=== PATIENT | male | born 1935 | race Caucasian/White ===

== ENCOUNTER → 2017-04-08 06:00 | Outpatient (REF) | payer MEDICARE, SELFPAY ==
[2017-04-08 08:06] LABS: Anion Gap 7 (5-15); BUN 25 mg/dL (7-18); BUN/Creat Ratio 25.4 RATIO (10-20); Chloride 112 mmol/L (98-107); Cholesterol 143 mg/dL (200); Creatinine, Serum 0.98 mg/dL (0.70-1.30); EST Glomerular Filtration Rate 78 mL/min (>60); Est Glom Filt Rate - Afr Amer 95 mL/min (>60); Glucose 80 mg/dL (70-110); High Density Lipoprotein 43 mg/dL; Potassium 4.3 mmol/L (3.5-5.1); Sodium Level 145 mmol/L (136-145); Triglycerides 75 mg/dL; Very Low Density Lipoprotein 15 mg/dL (5-40)
== END ==
LOC: OLS.WCC 06:00
PROVIDERS: Visit Provider Family Medicine
DX: I10 Essential (primary) hypertension (principal)
CPT/HCPCS: 36415; 80048; 80061

== ENCOUNTER 2017-07-16 23:27 | Inpatient (IN) | payer MEDICARE, MEDICAID, SELFPAY ==
[2017-07-16 23:28] VITALS: BP 111/73; PULSE 122; RESP 18; TEMP 36.6; O2SAT 98; BMI 25.3
--- NOTE | 2017-07-16 23:56 | ED.VISSUMM ---
- ER Visit Summary Date of Service: 07/16/17 Chief Complaint: Abdominal pain History of Present Illness: The patient is a [address] Jan Almanza. Brought in from a long-term with complaint of abdominal pain. 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 This greatly limits my ability to obtain a history. Brother reports that he has not had vomiting or diarrhea that he knows of. He does have a history of a cholecystectomy. Brother is unsure whether he has had an appendectomy. Physical Examination: Vitals: Stable. Afebrile. General: Well-nourished and well-developed. Head: Normocephalic atraumatic. Neck: Supple, no lymphadenopathy. No JVD. Nontender. Cardiovascular: Tachycardic regular rhythm. No murmurs. Respiratory: No respiratory distress. Clear to auscultation bilaterally. Abdominal: Soft, distended with mild diffuse tenderness palpation and hypoactive bowel sounds. No guarding, rebound, or peritoneal signs. Back: Nontender. Extremities: Nontender, no edema. Skin: Normal color, no rash. Psych: Normal affect. Test Results: EKG is A. fib with RVR at [address] changes. Troponin is negative. UA is remarkable for leukocytes, 5-10 white blood cells, 3+ bacteria and this is a cath specimen. LFTs marked for direct bili of 0.55, alk phos 155, ALT of 79, AST of 52, albumin 3.0, globulin of 4.5. Lipase is 42. CBC is more for a white count of 4.0 with 16 bands and 2 metamyelocytes. H&H is 10.7 and 32.9. Chem-7 is more for chloride 110, glucose 120, BUN is 64, creatinine 2.06. His creatinine was 1.[address] the abdomen pelvis with p.o. contrast only shows significant distention of the sigmoid and rectum with distal sigmoid and rectal wall thickening. I spoke with radiologist and she reports this is similar to his prior CT. Lactic acid is 1.2. Emergency Department Course and Treatment: Patient had an IV placed. He was given 2 L of normal saline. He was given morphine and Zofran IV. He is resting comfortably. He was given Rocephin IV and amiodarone IV as he is hypotensive. He had a Loo catheter placed and immediately returned 800 cc of urine. Treatment Plan: I had a prolonged discussion with his brother at the bedside who reports that he is not the power of online producer. He states that they allow the patient to make his own decisions regarding his healthcare. I discussed in the fact that he is MRDD and nonverbal and that this may not be the best plan. I did discuss and the fact that there is a DNR Comfort Care only order on his chart. The brother reports that his mother actually signed this. She has . He would like to honor her wishes and keep him DNR Comfort Care only. The patient was discussed with Dr. Shayy colindres. He will be admitted to the hospital for further evaluation and treatment. Disposition: Admitted in critical condition. Impression: 1. Urinary retention. 2. Acute kidney injury. 3. UTI. 4. Atrial fibrillation with RVR. 5. DNR Comfort Care only. 6. Critical care time 30 minutes. This note was generated with [employer] dictation software. It may contain incorrect words, spelling, and punctuation that were not noted in review of the chart prior to signing ED Disposition - Plan for ED Patient: Chief Complaint: Abd Pain Referrals: Jan Almanza MD [Primary Care Provider] -
[2017-07-17] VITALS (25 sets, daily range): BP systolic 89–135; BP diastolic 56–80; PULSE 78–150; RESP 16–25; TEMP 36.3–36.9; O2SAT 94–98; BMI 24.2
[2017-07-17 00:29] LABS: Hematocrit 32.9 % (40-54); Hemoglobin 10.7 g/dl (13.0-16.5); Mean Corp Hgb Conc 32.5 g/gl (32-36); Mean Corpuscular Hgb 31.6 pg (27.0-32.0); Mean Corpuscular Volume 97.1 fL (80-94); Mean Platelet Vol. 9.9 fl (6.2-12.0); Platelet Count 156 K/mm3 (150-450); RBC Distribution Width CV 16.2 % (11.6-14.6); RBC Distribution Width SD 54.7 fl (35.1-43.9); Red Blood Count 3.39 M/mm3 (4.6-6.2)
[2017-07-17 00:30] LABS: Differential Indicated MANUAL DIFF; POSITIVE COUNT YES; POSITIVE DIFFERENTIAL YES; POSITIVE MORPHOLOGY YES
[2017-07-17] MEDS: 0.9% Normal Saline 1,000 ML 1000 ML IV (00:35)
[2017-07-17] MEDS: Ondansetron 4 MG/2 ML Vial IV (00:35)
[2017-07-17 00:49] LABS: Mucous, Urine 0 SEEN /hpf (<or=2+)
[2017-07-17 00:51] LABS: Color, Urine Amber (Yellow); Glucose, Dipstick Normal (Normal); Ketone-Dipstick Negative (Negative); Leukocyte Esterase-Dipstick 100 /ul (Negative); Nitrite-Dipstick Negative (Negative); Occult Blood-Urine 25 /ul (Negative); Protein-Dipstick 15 mg/dl (Negative); Urine Clarity Sl. Cloudy (Clear); Urine Urobilinogen 4 mg/dl (Normal)
[2017-07-17 00:55] LABS: Urine Bilirubin Dipstick 1 mg/dL (Negative)
[2017-07-17 00:56] LABS: Bacteria 3+ /hpf (None Seen); Squamous Epithelial Cells - UA 0-5 SEEN /hpf (0-5); White Blood Cells 5-10 SEEN /hpf (0-5)
[2017-07-17 00:57] LABS: Red Blood Cells-Urine 0-5 SEEN /hpf (0-5)
[2017-07-17 00:59] LABS: AST(SGOT) 52 U/L (15-37); Alanine Aminotransfer ALT/SGPT 79 U/L (16-61); Alkaline Phosphatase 155 U/L (45-117); Anion Gap 8 (5-15); BUN 64 mg/dL (7-18); BUN/Creat Ratio 31.1 RATIO (10-20); Bilirubin, Direct 0.55 mg/dL (0.00-0.30); Calcium,Total 9.4 mg/dL (8.5-10.1); Chloride 110 mmol/L (98-107); Creatinine, Serum 2.06 mg/dL (0.70-1.30); EST Glomerular Filtration Rate 33 mL/min (>60); Est Glom Filt Rate - Afr Amer 40 mL/min (>60); Estimated Creatinine Clearance 31.91 ml/min; Globulin 4.5 g/dL (2.2-4.2); Glucose 120 mg/dL (74-106); Lipase 42 U/L (73-393); Potassium 4.3 mmol/L (3.5-5.1); Protein, Total 7.5 g/dL (6.4-8.2); Sodium Level 142 mmol/L (136-145)
[2017-07-17 01:02] LABS: Lymphocyte 8 % (19-41); Metamyelocyte 2 % (0-1); Monocyte 11 % (0-10); Neutrophil-Band 16 % (0-5); Neutrophil-Segmented 63 % (47-70); Total Cells Counted 100 (MANUAL DIFF)
[2017-07-17 01:03] LABS: Absolute Neutrophil Count 3.2 X10^3/uL (2.0-7.7); Neutrophil # 3.16 X10^3/uL (2.7-7.7); Platelet Estimate ADEQUATE (ADEQ); Red Cell Morphology NORM C+C NORMAL (NORM C&C); Toxic Granulation 3+; Vacuolated Cells 2+
[2017-07-17 01:04] LABS: Absolute Lymphocyte Count 0.32 X10^3/ul (0.83-4.51); Lymphocyte # 0.32 X10^3/ul (4.0)
[2017-07-17] MEDS: Ceftriaxone 1 GM/50 ML BAG IV (02:41)
--- NOTE | 2017-07-17 02:50 | EKG12_ITS ---
Test Reason : TACHYCARDIA Blood Pressure : / mmHG Vent. Rate : 141 BPM Atrial Rate : 090 BPM P-R Int : 000 ms QRS Dur : 070 ms QT Int : 296 ms P-R-T Axes : 000 -04 051 degrees QTc Int : 453 ms Atrial fibrillation Low voltage QRS Abnormal ECG Confirmed by QUENTIN ANDREWS, ANNITA ([id number]), assignment editor BALJIT CROWLEY ([id number]) on 07/19/2017 3:03:14 PM Referred By: TRACIE Confirmed By:ANNITA SAAVEDRA MD
[2017-07-17] MEDS: 0.9% Normal Saline 1,000 ML 999 ML IV (02:54)
[2017-07-17 03:08] LABS: Lactic Acid 1.2 mmol/L (0.4-2.0)
--- NOTE | 2017-07-17 03:47 | RAD_ITS ---
STUDY: X-RAY CHEST REASON FOR EXAM: Male, 81 years old. Cough. TECHNIQUE: AP portable chest. COMPARISON: [facility] view CT chest October 30, 2012. FINDINGS: The lungs are clear and expanded. There is no demonstrated pleural abnormality. Moderate cardiomegaly slightly increased since the prior study. Normal mediastinum and laurie. Normal visualized pulmonary arteries. There is atherosclerotic calcification of the aortic arch. Normal visualized thoracic spine. Normal visualized ribs, clavicles, and shoulders. There is no demonstrated abnormality of the visualized soft tissue structures of the upper abdomen. RAD/Chest 1 View (Portable) IMPRESSION: Moderate cardiomegaly slightly increased since the prior exam. Electronically Signed: Tavon Flores MD at 4:53 EST , Service support ,
--- NOTE | 2017-07-17 04:11 | PCM.HP.STD ---
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 The patient is a 81 year old M with past medical history as mentioned above presented to the emergency room from [facility] because of abdominal pain. Reportedly, patient has been having abdominal pain. He is nonverbal because of history of MRDD. At this time, I was not able to get any useful information from the patient. There was no family member at the bedside. ER physician mentioned that patient's brother was present earlier. The brother was not also helpful in terms of providing useful history. I asked the patient if he has any chest pain he said no. I asked him if he has any abdominal pain and he said no as well. At this time, history is very limited. Patient had a history of chronic atrial fibrillation and he has been on Cardizem for rate control but not on anticoagulation. He had a history of mental retardation and he is a [facility] resident. He has history of benign prostatic hypertrophy as well as urinary retention and he has been on Flomax and Proscar. In the emergency room, patient was afebrile, was in A. fib with RVR, blood pressure and pulse ox were stable. Routine blood work was remarkable for chronic anemia, creatinine of 2.06. His lactic acid was normal. His LFT revealed slightly elevated liver transaminases and alkaline phosphatase. His lipase was normal. Urinalysis revealed cloudy urine, negative for nitrite, positive for leukocyte esterase, there was 5-10 WBCs and 3+ bacteria. Chest x-ray revealed cardiomegaly and elevated left hemidiaphragm. CT scan abdomen and pelvis with oral contrast revealed significant distention of the sigmoid colon with distal sigmoid and rectal wall thickening, no bowel obstruction or volvulus, significant amount of fecal retention. He is being admitted for acute cystitis with sepsis, acute kidney injury, chronic distention with significant fecal retention. 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) Allergies No Known Allergies Allergy (Verified 07/16/17 23:28) Home Medications: Ambulatory Orders Medication Instructions Recorded Acetaminophen [Tylenol Extra 1,000 mg PO BID 07/16/17 Strength] Acetaminophen [Tylenol Extra 1,000 mg PO Q4H PRN PRN 07/16/17 Strength] Diltiazem HCl [Diltiazem ER] 240 mg PO DAILY 07/16/17 Escitalopram Oxalate [Lexapro] 20 mg PO DAILY 07/16/17 Finasteride [Proscar] 5 mg PO DAILY 07/16/17 Furosemide [Lasix] 40 mg PO DAILY 07/16/17 Magnesium Hydroxide [Milk Of 30 ml PO DAILY PRN PRN 07/16/17 Magnesia] Meloxicam 15 mg PO DAILY 07/16/17 Omeprazole 20 mg PO DAILY 07/16/17 Polyethylene Glycol 3350 [Miralax] 17 gm PO QODAY 07/16/17 Tamsulosin HCl [Flomax] 0.4 mg PO DAILY 07/16/17 Surgical History: noncontributory Psychiatric History: No pertinent psych hx Lives: [facility] Smoking Status: Never smoker Alcohol: None Drugs: None - *Family History Maternal History Items: No pertinent history Paternal History Items: No pertinent history Review of Systems Constitutional: Reports: - - Unobtainable, patient is mentally retarded. Eyes: Reports: - - Unobtainable, patient is mentally retarded. HEENT: Reports: - - Unobtainable, patient is mentally retarded. Cardiovascular: Reports: - - Unobtainable, patient is mentally retarded. Respiratory: Reports: - - Unobtainable, patient is mentally retarded. Gastrointestinal: Reports: - - Unobtainable, patient is mentally retarded. Genitourinary: Reports: - - Unobtainable, patient is mentally retarded. Musculoskeletal: Reports: - - Unobtainable, patient is mentally retarded. Neurological: Reports: - - Unobtainable, patient is mentally retarded. VTE Information - Inpt Only VTE Present on Admission: No VTE Mechan Device Prophylaxis: None VTE Pharm Prophylaxis ordered?: Yes - Physical Exam General: Alert, Confused, - - Mental retarded, nonverbal. HEENT: Atraumatic, PERRLA, EOMI Oral: Moist Mucosa, No Gingival or Mucosal Lesions/ Ulcerations Neck: Supple, No JVD, Negative Carotid Bruits, Trachea Midline, Thyroid Normal Size and Texture Lungs: Clear to auscultation, No wheeze, No rales, Diminished, Rhonchi Cardiovascular: Normal S1, Normal S2, No murmurs, PMI Normal, Irregular Rate, Tachycardic Abdomen: Bowel Sounds Present, Non Tender, No Hepato-splenomegaly, Distended, - - Abdomen is distended, firm to palpation, nontender. Extremities: No clubbing, No cyanosis, No edema Skin: No rashes, No breakdown Lymphatic: No Cervical, Supraclavicular, or Inguinal Adenopathy Neurological: Cranial nerves II-XII grossly intact, - - Moving all limbs. Psych/Mental Status: Flat Affect Vital Signs Temp Pulse Resp BP Pulse Ox 98.3 F 122 H 20 H 97/65 96 07/17/17 03:00 07/17/17 03:39 07/17/17 03:39 07/17/17 03:39 07/17/17 03:39 Oxygen Delivery Method Room Air Weight: 187 lb Body Mass Index (BMI) 25.3 Laboratory Tests Past 24 Hrs 07/17/17 07/17/17 07/17/17 00:20 00:20 00:20 WBC 4.0 L RBC 3.39 L Hgb 10.7 L Hct 32.9 L MCV 97.1 H MCH 31.6 MCHC 32.5 RDW 16.2 H RDW Differential 54.7 H Plt Count 156 MPV 9.9 Neut % (Auto) Not Reportable Absolute Neuts (auto) 3.2 Absolute Lymphs (auto) 0.32 L Total Counted 100 Neutrophils % (Manual) 63 Band Neutrophils % 16 H Lymphocytes % (Manual) 8 L Monocytes % (Manual) 11 H Metamyelocytes % 2 H Differential Comment 2+ Diff Path Review May foll Toxic Granulation 3+ Platelet Estimate ADEQUATE RBC Morphology NORM C+C Sodium 142 Potassium 4.3 Chloride 110 H Carbon Dioxide 24.0 Anion Gap 8 BUN 64 H Creatinine 2.06 H Estim Creat Clear Calc 31.91 Est GFR (MDRD) Af Amer 40 L Est GFR (MDRD) Non-Af 33 L BUN/Creatinine Ratio 31.1 H Glucose 120 H Lactic Acid Calcium 9.4 Total Bilirubin 0.90 Direct Bilirubin 0.55 H AST 52 H ALT 79 H Alkaline Phosphatase 155 H Troponin I < 0.02 Total Protein 7.5 Albumin 3.0 L Globulin 4.5 H Lipase 42 L Urine Color Urine Clarity Urine pH Ur Specific Spruce Urine Protein Urine Glucose (UA) Urine Ketones Urine Occult Blood Urine Nitrite Urine Bilirubin Urine Urobilinogen Ur Leukocyte Esterase Urine RBC Urine WBC Ur Squamous Epith Cells Urine Bacteria Urine Mucus 07/17/17 07/17/17 00:39 02:30 WBC RBC Hgb Hct MCV MCH MCHC RDW RDW Differential Plt Count MPV Neut % (Auto) Absolute Neuts (auto) Absolute Lymphs (auto) Total Counted Neutrophils % (Manual) Band Neutrophils % Lymphocytes % (Manual) Monocytes % (Manual) Metamyelocytes % Differential Comment Diff Path Review Toxic Granulation Platelet Estimate RBC Morphology Sodium Potassium Chloride Carbon Dioxide Anion Gap BUN Creatinine Estim Creat Clear Calc Est GFR (MDRD) Af Amer Est GFR (MDRD) Non-Af BUN/Creatinine Ratio Glucose Lactic Acid 1.2 Calcium Total Bilirubin Direct Bilirubin AST ALT Alkaline Phosphatase Troponin I Total Protein Albumin Globulin Lipase Urine Color Alfreda Urine Clarity Sl. Cloudy Urine pH 5.0 Ur Specific Spruce 1.020 Urine Protein 15 H Urine Glucose (UA) Normal Urine Ketones Negative Urine Occult Blood 25 H Urine Nitrite Negative Urine Bilirubin 1 H Urine Urobilinogen 4 H Ur Leukocyte Esterase 100 H Urine RBC 0-5 SEEN Urine WBC 5-10 SEEN Ur Squamous Epith Cells 0-5 SEEN Urine Bacteria 3+ Urine Mucus 0 SEEN Clinical Impression(s) from Imaging Studies Abdomen CT 07/17/17 23:50 IMPRESSION: 1. Significant air distention of sigmoid colon and rectum with distal sigmoid and rectal wall thickening. There is caliber change of the proximal sigmoid colon which may be due to the distortion of anatomy/fracture of the distended colon. There is no evidence of a volvulus. Obstruction at the proximal sigmoid colon level appears doubtful. This can be further assessed with Gastrografin enema. 2. Stable significant redundancy of the rectosigmoid colon. 3. Resolution of previous significant biliary ductal dilatation. 4. Increased of pericardial fluid. 5. Increased size of bilateral inguinal hernia containing noncompromised and nonobstructed small bowel. 6. Stable pancreas involution, coronary artery disease, arteriosclerosis, chronic interstitial lung disease and degenerative changes. Electronically Signed: Farheen Segura MD at 2:35 EST , Service support , ADDENDUM: 07/17/17 0252 IMPRESSION: 1. Significant air distention of sigmoid colon and rectum with distal sigmoid and rectal wall thickening. There is caliber change of the proximal sigmoid colon which may be due to the distortion of anatomy/PRESSURE of the distended colon. There is no evidence of a volvulus. Obstruction at the proximal sigmoid colon level appears doubtful. This can be further assessed with Gastrografin enema. 2. Stable significant redundancy of the rectosigmoid colon. 3. Resolution of previous significant biliary ductal dilatation. 4. Increased pericardial fluid. 5. Increased size of bilateral inguinal hernia containing noncompromised and nonobstructed small bowel. 6. Stable pancreas involution, coronary artery disease, arteriosclerosis, chronic interstitial lung disease and degenerative changes. Electronically Signed: Farheen Segura MD at 2:45 EST , Service support , Assessment/Plan This is a 81 years old male patient referred to the emergency department from [facility] because of abdominal pain, patient has been elevation in was not able to provide any useful history, found to have acute cystitis with sepsis, A. fib with RVR, acute kidney injury and colonic distention with significant fecal retention. #1 acute cystitis/sepsis: This is based on tachycardia, acute kidney injury and evidence of acute cystitis on urinalysis. Lactic acid is normal. Blood pressure borderline. [facility] culture, urine culture, start IV Zosyn, input output chart, repeat CBC and BMP tomorrow morning. #2 acute kidney injury: Secondary to above in addition to dehydration. Baseline kidney function is normal. Admission creatinine is 2.06. Plan: IV fluids, input output chart, repeat BMP tomorrow morning. #3 A. fib with RVR: He does have a history of chronic A. fib. He has been on Cardizem for rate control. In the emergency room, his heart has been up to 120s, blood pressure is borderline. He was started on IV amiodarone drip because of borderline blood pressure. This is probably due to acute infection and sepsis. Plan: Continue IV amiodarone drip, continue Cardizem for rate control. He is not on anticoagulation. #4 colonic distention/fecal retention: CT scan abdomen and pelvis with oral contrast reviewed. Findings notified. Patient has significant amount of fecal retention. Plan: Milk of magnesia daily, Senokot twice daily, repeat portable x-ray abdomen tomorrow morning #5 hypertension: Blood pressure started to come down, borderline. Plan to continue Cardizem, IV fluids. #6 chronic atrial fibrillation: He is in A. fib with RVR at this time. Plan as above. #7 chronically elevated LFT: This is chronic, likely because of chronic CBD dilatation. Actually his liver transaminases and alkaline phosphatase are trending down compared to previous readings. #8 mental retardation: Supportive care. #9 DVT prophylaxis: Subcu heparin. #10 CODE STATUS: There is a signed document from the [facility] and stated the patient is DNR CC. ER physician spoke with the patient's brother who confirmed the status of DNR CC only but apparently, he does not understand this type of CODE STATUS very well. At this time, CODE STATUS is DNR CC but we need to clarify with the the patient's brother CODE STATUS tomorrow. This note was generated with [employer] dictation software. It may contain incorrect words, spelling, and punctuation that were not noted in checking the note before signing. Code Visit Inpatient E&M: 73884 Init Hosp L3
--- NOTE | 2017-07-17 04:22 | HP.PCM_ITS ---
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 The patient is a 81 year old M with past medical history as mentioned above presented to the emergency room from care home because of abdominal pain. Reportedly, patient has been having abdominal pain. He is nonverbal because of history of MRDD. At this time, I was not able to get any useful information from the patient. There was no family member at the bedside. ER physician mentioned that patient's brother was present earlier. The brother was not also helpful in terms of providing useful history. I asked the patient if he has any chest pain he said no. I asked him if he has any abdominal pain and he said no as well. At this time, history is very limited. Patient had a history of chronic atrial fibrillation and he has been on Cardizem for rate control but not on anticoagulation. He had a history of mental retardation and he is a care home resident. He has history of benign prostatic hypertrophy as well as urinary retention and he has been on Flomax and Proscar. In the emergency room, patient was afebrile, was in A. fib with RVR, blood pressure and pulse ox were stable. Routine blood work was remarkable for chronic anemia, creatinine of 2.06. His lactic acid was normal. His LFT revealed slightly elevated liver transaminases and alkaline phosphatase. His lipase was normal. Urinalysis revealed cloudy urine, negative for nitrite, positive for leukocyte esterase, there was 5-10 WBCs and 3+ bacteria. Chest x-ray revealed cardiomegaly and elevated left hemidiaphragm. CT scan abdomen and pelvis with oral contrast revealed significant distention of the sigmoid colon with distal sigmoid and rectal wall thickening, no bowel obstruction or volvulus, significant amount of fecal retention. He is being admitted for acute cystitis with sepsis, acute kidney injury, chronic distention with significant fecal retention. 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) Allergies No Known Allergies Allergy (Verified 07/16/17 23:28) Home Medications: Ambulatory Orders Medication Instructions Recorded Acetaminophen [Tylenol Extra 1,000 mg PO BID 07/16/17 Strength] Acetaminophen [Tylenol Extra 1,000 mg PO Q4H PRN PRN 07/16/17 Strength] Diltiazem HCl [Diltiazem ER] 240 mg PO DAILY 07/16/17 Escitalopram Oxalate [Lexapro] 20 mg PO DAILY 07/16/17 Finasteride [Proscar] 5 mg PO DAILY 07/16/17 Furosemide [Lasix] 40 mg PO DAILY 07/16/17 Magnesium Hydroxide [Milk Of 30 ml PO DAILY PRN PRN 07/16/17 Magnesia] Meloxicam 15 mg PO DAILY 07/16/17 Omeprazole 20 mg PO DAILY 07/16/17 Polyethylene Glycol 3350 [Miralax] 17 gm PO QODAY 07/16/17 Tamsulosin HCl [Flomax] 0.4 mg PO DAILY 07/16/17 Surgical History: noncontributory Psychiatric History: No pertinent psych hx Lives: [facility] Smoking Status: Never smoker Alcohol: None Drugs: None - *Family History Maternal History Items: No pertinent history Paternal History Items: No pertinent history Review of Systems Constitutional: Reports: - - Unobtainable, patient is mentally retarded. Eyes: Reports: - - Unobtainable, patient is mentally retarded. HEENT: Reports: - - Unobtainable, patient is mentally retarded. Cardiovascular: Reports: - - Unobtainable, patient is mentally retarded. Respiratory: Reports: - - Unobtainable, patient is mentally retarded. Gastrointestinal: Reports: - - Unobtainable, patient is mentally retarded. Genitourinary: Reports: - - Unobtainable, patient is mentally retarded. Musculoskeletal: Reports: - - Unobtainable, patient is mentally retarded. Neurological: Reports: - - Unobtainable, patient is mentally retarded. VTE Information - Inpt Only VTE Present on Admission: No VTE Mechan Device Prophylaxis: None VTE Pharm Prophylaxis ordered?: Yes - Physical Exam General: Alert, Confused, - - Mental retarded, nonverbal. HEENT: Atraumatic, PERRLA, EOMI Oral: Moist Mucosa, No Gingival or Mucosal Lesions/ Ulcerations Neck: Supple, No JVD, Negative Carotid Bruits, Trachea Midline, Thyroid Normal Size and Texture Lungs: Clear to auscultation, No wheeze, No rales, Diminished, Rhonchi Cardiovascular: Normal S1, Normal S2, No murmurs, PMI Normal, Irregular Rate, Tachycardic Abdomen: Bowel Sounds Present, Non Tender, No Hepato-splenomegaly, Distended, - - Abdomen is distended, firm to palpation, nontender. Extremities: No clubbing, No cyanosis, No edema Skin: No rashes, No breakdown Lymphatic: No Cervical, Supraclavicular, or Inguinal Adenopathy Neurological: Cranial nerves II-XII grossly intact, - - Moving all limbs. Psych/Mental Status: Flat Affect Vital Signs Temp Pulse Resp BP Pulse Ox 98.3 F 122 H 20 H 97/65 96 07/17/17 03:00 07/17/17 03:39 07/17/17 03:39 07/17/17 03:39 07/17/17 03:39 Oxygen Delivery Method Room Air Weight: 187 lb Body Mass Index (BMI) 25.3 Laboratory Tests Past 24 Hrs 07/17/17 07/17/17 07/17/17 00:20 00:20 00:20 WBC 4.0 L RBC 3.39 L Hgb 10.7 L Hct 32.9 L MCV 97.1 H MCH 31.6 MCHC 32.5 RDW 16.2 H RDW Differential 54.7 H Plt Count 156 MPV 9.9 Neut % (Auto) Not Reportable Absolute Neuts (auto) 3.2 Absolute Lymphs (auto) 0.32 L Total Counted 100 Neutrophils % (Manual) 63 Band Neutrophils % 16 H Lymphocytes % (Manual) 8 L Monocytes % (Manual) 11 H Metamyelocytes % 2 H Differential Comment 2+ Diff Path Review May foll Toxic Granulation 3+ Platelet Estimate ADEQUATE RBC Morphology NORM C+C Sodium 142 Potassium 4.3 Chloride 110 H Carbon Dioxide 24.0 Anion Gap 8 BUN 64 H Creatinine 2.06 H Estim Creat Clear Calc 31.91 Est GFR (MDRD) Af Amer 40 L Est GFR (MDRD) Non-Af 33 L BUN/Creatinine Ratio 31.1 H Glucose 120 H Lactic Acid Calcium 9.4 Total Bilirubin 0.90 Direct Bilirubin 0.55 H AST 52 H ALT 79 H Alkaline Phosphatase 155 H Troponin I < 0.02 Total Protein 7.5 Albumin 3.0 L Globulin 4.5 H Lipase 42 L Urine Color Urine Clarity Urine pH Ur Specific [place] Urine Protein Urine Glucose (UA) Urine Ketones Urine Occult Blood Urine Nitrite Urine Bilirubin Urine Urobilinogen Ur Leukocyte Esterase Urine RBC Urine WBC Ur Squamous Epith Cells Urine Bacteria Urine Mucus 07/17/17 07/17/17 00:39 02:30 WBC RBC Hgb Hct MCV MCH MCHC RDW RDW Differential Plt Count MPV Neut % (Auto) Absolute Neuts (auto) Absolute Lymphs (auto) Total Counted Neutrophils % (Manual) Band Neutrophils % Lymphocytes % (Manual) Monocytes % (Manual) Metamyelocytes % Differential Comment Diff Path Review Toxic Granulation Platelet Estimate RBC Morphology Sodium Potassium Chloride Carbon Dioxide Anion Gap BUN Creatinine Estim Creat Clear Calc Est GFR (MDRD) Af Amer Est GFR (MDRD) Non-Af BUN/Creatinine Ratio Glucose Lactic Acid 1.2 Calcium Total Bilirubin Direct Bilirubin AST ALT Alkaline Phosphatase Troponin I Total Protein Albumin Globulin Lipase Urine Color Alfreda Urine Clarity Sl. Cloudy Urine pH 5.0 Ur Specific [place] 1.020 Urine Protein 15 H Urine Glucose (UA) Normal Urine Ketones Negative Urine Occult Blood 25 H Urine Nitrite Negative Urine Bilirubin 1 H Urine Urobilinogen 4 H Ur Leukocyte Esterase 100 H Urine RBC 0-5 SEEN Urine WBC 5-10 SEEN Ur Squamous Epith Cells 0-5 SEEN Urine Bacteria 3+ Urine Mucus 0 SEEN Clinical Impression(s) from Imaging Studies Abdomen CT 07/17/17 23:50 IMPRESSION: 1. Significant air distention of sigmoid colon and rectum with distal sigmoid and rectal wall thickening. There is caliber change of the proximal sigmoid colon which may be due to the distortion of anatomy/fracture of the distended colon. There is no evidence of a volvulus. Obstruction at the proximal sigmoid colon level appears doubtful. This can be further assessed with Gastrografin enema. 2. Stable significant redundancy of the rectosigmoid colon. 3. Resolution of previous significant biliary ductal dilatation. 4. Increased of pericardial fluid. 5. Increased size of bilateral inguinal hernia containing noncompromised and nonobstructed small bowel. 6. Stable pancreas involution, coronary artery disease, arteriosclerosis, chronic interstitial lung disease and degenerative changes. Electronically Signed: Farheen Segura MD at 2:35 EST , Service support , ADDENDUM: 07/17/17 0252 IMPRESSION: 1. Significant air distention of sigmoid colon and rectum with distal sigmoid and rectal wall thickening. There is caliber change of the proximal sigmoid colon which may be due to the distortion of anatomy/PRESSURE of the distended colon. There is no evidence of a volvulus. Obstruction at the proximal sigmoid colon level appears doubtful. This can be further assessed with Gastrografin enema. 2. Stable significant redundancy of the rectosigmoid colon. 3. Resolution of previous significant biliary ductal dilatation. 4. Increased pericardial fluid. 5. Increased size of bilateral inguinal hernia containing noncompromised and nonobstructed small bowel. 6. Stable pancreas involution, coronary artery disease, arteriosclerosis, chronic interstitial lung disease and degenerative changes. Electronically Signed: Farheen Segura MD at 2:45 EST , Service support , Assessment/Plan This is a 81 years old male patient referred to the emergency department from care home because of abdominal pain, patient has been elevation in was not able to provide any useful history, found to have acute cystitis with sepsis, A. fib with RVR, acute kidney injury and colonic distention with significant fecal retention. #1 acute cystitis/sepsis: This is based on tachycardia, acute kidney injury and evidence of acute cystitis on urinalysis. Lactic acid is normal. Blood pressure borderline. [facility], blood culture, urine culture, start IV Zosyn, input output chart, repeat CBC and BMP tomorrow morning. #2 acute kidney injury: Secondary to above in addition to dehydration. Baseline kidney function is normal. Admission creatinine is 2.06. Plan: IV fluids, input output chart, repeat BMP tomorrow morning. #3 A. fib with RVR: He does have a history of chronic A. fib. He has been on Cardizem for rate control. In the emergency room, his heart has been up to 120s , blood pressure is borderline. He was started on IV amiodarone drip because of borderline blood pressure. This is probably due to acute infection and sepsis. Plan: Continue IV amiodarone drip, continue Cardizem for rate control. He is not on anticoagulation. #4 colonic distention/fecal retention: CT scan abdomen and pelvis with oral contrast reviewed. Findings notified. Patient has significant amount of fecal retention. Plan: Milk of magnesia daily, Senokot twice daily, repeat portable x -ray abdomen tomorrow morning #5 hypertension: Blood pressure started to come down, borderline. Plan to continue Cardizem, IV fluids. #6 chronic atrial fibrillation: He is in A. fib with RVR at this time. Plan as above. #7 chronically elevated LFT: This is chronic, likely because of chronic CBD dilatation. Actually his liver transaminases and alkaline phosphatase are trending down compared to previous readings. #8 mental retardation: Supportive care. #9 DVT prophylaxis: Subcu heparin. #10 CODE STATUS: There is a signed document from the care home and stated the patient is DNR CC. ER physician spoke with the patient's brother who confirmed the status of DNR CC only but apparently, he does not understand this type of CODE STATUS very well. At this time, CODE STATUS is DNR CC but we need to clarify with the the patient's brother CODE STATUS tomorrow. This note was generated with [employer] dictation software. It may contain incorrect words, spelling, and punctuation that were not noted in checking the note before signing. Code Visit Inpatient E&M: 95501 Init Hosp L3
[2017-07-17] MEDS: 0.9% Normal Saline 1,000 ML 100 ML IV ×2 (05:10→14:39)
[2017-07-17] MEDS: Piperacil/Tazobactam 3.375 GM/50 ML ML IV (06:22)
--- NOTE | 2017-07-17 10:15 | CASEMGMT ---
Patient is from [facility]. ANNEMARIE called [facility] and Jessy was not available. 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 Plan: Return to [facility] when ready. Madelyn CABAN MSW
--- NOTE | 2017-07-17 11:00 | RAD_ITS ---
STUDY: X-RAY - ABDOMEN/PELVIS REASON FOR EXAM: Male, 81 years old. Abdominal pain and abdominal distention. TECHNIQUE: Two AP supine views of the abdomen and pelvis. COMPARISON: None. FINDINGS: Normal visualized lung bases. There is evidence of a fecal material and gaseous distention of the colon down to the region of the rectum. Distal obstruction should be ruled out. A sigmoid volvulus should be ruled out. The visualized liver, spleen and kidneys are grossly normal in size and morphology. Normal soft tissue structures. Normal visualized osseous structures. RAD/Abdomen Single View (Portable) IMPRESSION: Gaseous distention of the colon as well as fecal retention. Follow-up is recommended. Electronically Signed: Aaron Hernandez MD at 13:40 EST Tel [phone], Service support ,
--- NOTE | 2017-07-17 11:02 | NURSING ---
THIS RN ASSUMING CARE AT THIS TIME.
[2017-07-17] MEDS: Escitalopram Oxalate 20 MG Tablet PO (11:09)
[2017-07-17] MEDS: Senna Tablet 2 TABLET PO ×2 (11:09→21:26)
[2017-07-17] MEDS: Finasteride 5 MG Tablet PO (11:09)
[2017-07-17] MEDS: Tamsulosin HCl 0.4 MG Capsule PO (11:09)
[2017-07-17] MEDS: Pantoprazole Sodium 20 MG Tablet PO (11:09)
[2017-07-17] MEDS: dilTIAZem CD 240 MG Capsule PO (11:09)
[2017-07-17] MEDS: Magnesium Hydroxide 30 ML UDC PO (11:18)
--- NOTE | 2017-07-17 12:03 | PCM.PROGNOTE ---
<Love Rodriguez - Last Filed: 07/17/17 12:27> Patient Problems: Active and Suspected Problems YENNI (acute kidney injury) (Acute) Raudel's syndrome (Acute) Atrial fibrillation with RVR (Acute) Subjective: Patient seen and examined. Resting in bed in no acute distress. Pointing to abdomen and mouth. Unable to communicate complaints. When asked if abdomen is painful, patient replies no. - Physical Exam General: Alert, Cooperative, No apparent distress HEENT: Atraumatic, PERRLA, EOMI, Normocephalic Neck: Supple, No JVD, Negative Carotid Bruits Lungs: Clear to auscultation, Diminished Cardiovascular: Normal S1, Normal S2, No murmurs, Tachycardic, - - A.fib Abdomen: Bowel Sounds Present, Non Tender, Distended, - - Abdomen firm Extremities: No clubbing, No cyanosis, No edema, Capillary Refill Less than 3 Seconds Skin: No rashes, No breakdown Musculoskeletal: No Tenderness to Palpation of Joints or Extremities Neurological: Cranial nerves II-XII grossly intact, Neuro grossly intact Psych/Mental Status: Normal Affect, Appropriate Vital Signs Temp Pulse Resp BP Pulse Ox 97.4 F L 133 H 25 H 134/78 H 98 07/17/17 08:00 07/17/17 11:02 07/17/17 11:00 07/17/17 11:00 07/17/17 11:00 Oxygen Delivery Method Room Air Weight: 81.1 kg Body Mass Index (BMI) 24.2 Intake and Output for Last 24 Hours 07/15/17 07/16/17 07/17/17 23:59 23:59 23:59 Intake Total 118.9 / 118.9 Output Total 600 / 600 Balance -481.1 / -481.1 Assessment/Plan Active and Suspected Problems YENNI (acute kidney injury) (Acute) [place]'s syndrome (Acute) Atrial fibrillation with RVR (Acute) Patient is a 81-year-old male admitted 07/17/2017 due to abdominal pain. Patient resides in long term facility. He has a past medical history of chronic atrial fibrillation, MRDD, hypertension, history of tobacco use, GERD, BPH, chronic anemia. 1. Abdominal pain/distention-CT of abdomen and pelvis showed distention of the sigmoid colon with distal sigmoid and rectal wall thickening, no bowel obstruction or volvulus, significant amount of fecal retention. Patient has chronic abdominal distention. Urinalysis not significant for UTI. Sepsis ruled out. Blood cultures pending. No leukocytosis, afebrile, lactic acid WNL. Repeat abdominal x-ray pending. Gastrografin enema ordered. AST/ALT chronically mildly elevated. Continue senna twice daily, milk of magnesia daily. Clear liquid diet. 2. Acute kidney injury-suspected secondary to dehydration. Continue IV fluids. Monitor BMP. 3. Atrial fibrillation with RVR on chronic atrial fibrillation-not on anticoagulation. Rate currently tachycardic. Patient was started on amiodarone gtt. Continue home Cardizem regimen of 240 mg daily. Echocardiogram October 2012 showed an EF of 50%. Continue to monitor. 4. BPH/urinary retention-Loo in place. Continue Flomax and Proscar regimen. 5. Chronic anemia-stable, monitor CBC. 6. Hypertension-stable, continue home regimen. 7. GERD- continue PPI. 8. QGVD-ikfhtcggls-[id number] at SNF. PT/OT. DVT prophylaxis-heparin SC. This patient was seen by RACHELLE Renteria under the supervision of Dr. Lyman. <Jose Antonio Lyman - Last Filed: 07/17/17 14:13> - Physical Exam General: Alert, Cooperative, - - Mumbles incoherently. Answers questions in more or less grunts. Lungs: Clear to auscultation, Normal air movement, No rhonchi, No wheeze Cardiovascular: Regular rate, Regular Rhythm, Normal S1, Normal S2 Abdomen: Soft, Distended, - Extremities: No clubbing, No cyanosis, No edema, Capillary Refill Less than 3 Seconds Skin: No rashes, No breakdown Psych/Mental Status: Normal Affect, Appropriate Vital Signs Temp Pulse Resp BP Pulse Ox 36.6 C 150 H 22 H 135/76 H 98 07/17/17 12:00 07/17/17 12:00 07/17/17 12:00 07/17/17 12:00 07/17/17 12:00 Oxygen Delivery Method Room Air Weight: 81.1 kg Body Mass Index (BMI) 24.2 Intake and Output for Last 24 Hours 07/15/17 07/16/17 07/17/17 23:59 23:59 23:59 Intake Total 1229.9 / 1229.9 Output Total 1150 / 1150 Balance 79.9 / 79.9 Assessment/Plan Patient seen and examined independently. Agree with the above note by the nurse practitioner. 1. 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 I have requested a gastro-graft and enema but will not be able to be performed until the eighth. Per nursing, patient did have liquid stool in his vault. Patient will have a rectal management system in place. 2. Acute kidney injury Baseline creatinine is around 1 I suspect this is prerenal Continue with IV fluids 3. Atrial fibrillation with RVR still tachycardic despite amiogtt dc amio gtt cardizem bolus followed by gtt likely exacerbated by #1 CHADs-Vasc 3. High risk with OACs, utilize ASA. 4. DVT proph: sq heparin. I don't feel the patient has a UTI. Also, I do not feel the patient had sepsis nor severe sepsis on admission or subsequently. Code Visit Inpatient E&M: 89969 Subs Hosp L3
--- NOTE | 2017-07-17 12:25 | PN_ITS ---
<Love Rodriguez - Last Filed: 07/17/17 12:27> Patient Problems: Active and Suspected Problems YENNI (acute kidney injury) (Acute) Raudel's syndrome (Acute) Atrial fibrillation with RVR (Acute) Subjective: Patient seen and examined. Resting in bed in no acute distress. Pointing to abdomen and mouth. Unable to communicate complaints. When asked if abdomen is painful, patient replies no. - Physical Exam General: Alert, Cooperative, No apparent distress HEENT: Atraumatic, PERRLA, EOMI, Normocephalic Neck: Supple, No JVD, Negative Carotid Bruits Lungs: Clear to auscultation, Diminished Cardiovascular: Normal S1, Normal S2, No murmurs, Tachycardic, - - A.fib Abdomen: Bowel Sounds Present, Non Tender, Distended, - - Abdomen firm Extremities: No clubbing, No cyanosis, No edema, Capillary Refill Less than 3 Seconds Skin: No rashes, No breakdown Musculoskeletal: No Tenderness to Palpation of Joints or Extremities Neurological: Cranial nerves II-XII grossly intact, Neuro grossly intact Psych/Mental Status: Normal Affect, Appropriate Vital Signs Temp Pulse Resp BP Pulse Ox 97.4 F L 133 H 25 H 134/78 H 98 07/17/17 08:00 07/17/17 11:02 07/17/17 11:00 07/17/17 11:00 07/17/17 11:00 Oxygen Delivery Method Room Air Weight: 81.1 kg Body Mass Index (BMI) 24.2 Intake and Output for Last 24 Hours 07/15/17 07/16/17 07/17/17 23:59 23:59 23:59 Intake Total 118.9 / 118.9 Output Total 600 / 600 Balance -481.1 / -481.1 Assessment/Plan Active and Suspected Problems YENNI (acute kidney injury) (Acute) [place]'s syndrome (Acute) Atrial fibrillation with RVR (Acute) Patient is a 81-year-old male admitted 07/17/2017 due to abdominal pain. Patient resides in long term facility. He has a past medical history of chronic atrial fibrillation, MRDD, hypertension, history of tobacco use, GERD, BPH, chronic anemia. 1. Abdominal pain/distention-CT of abdomen and pelvis showed distention of the sigmoid colon with distal sigmoid and rectal wall thickening, no bowel obstruction or volvulus, significant amount of fecal retention. Patient has chronic abdominal distention. Urinalysis not significant for UTI. Sepsis ruled out. Blood cultures pending. No leukocytosis, afebrile, lactic acid WNL. Repeat abdominal x-ray pending. Gastrografin enema ordered. AST/ALT chronically mildly elevated. Continue senna twice daily, milk of magnesia daily. Clear liquid diet. 2. Acute kidney injury-suspected secondary to dehydration. Continue IV fluids. Monitor BMP. 3. Atrial fibrillation with RVR on chronic atrial fibrillation-not on anticoagulation. Rate currently tachycardic. Patient was started on amiodarone gtt. Continue home Cardizem regimen of 240 mg daily. Echocardiogram October 2012 showed an EF of 50%. Continue to monitor. 4. BPH/urinary retention-Loo in place. Continue Flomax and Proscar regimen. 5. Chronic anemia-stable, monitor CBC. 6. Hypertension-stable, continue home regimen. 7. GERD- continue PPI. 8. LMII-oumzfamhjl-tpoek at SNF. PT/OT. DVT prophylaxis-heparin SC. This patient was seen by RACHELLE Renteria under the supervision of Dr. Lyman. <Jose Antonio Lyman - Last Filed: 07/17/17 14:13> - Physical Exam General: Alert, Cooperative, - - Mumbles incoherently. Answers questions in more or less grunts. Lungs: Clear to auscultation, Normal air movement, No rhonchi, No wheeze Cardiovascular: Regular rate, Regular Rhythm, Normal S1, Normal S2 Abdomen: Soft, Distended, - Extremities: No clubbing, No cyanosis, No edema, Capillary Refill Less than 3 Seconds Skin: No rashes, No breakdown Psych/Mental Status: Normal Affect, Appropriate Vital Signs Temp Pulse Resp BP Pulse Ox 36.6 C 150 H 22 H 135/76 H 98 07/17/17 12:00 07/17/17 12:00 07/17/17 12:00 07/17/17 12:00 07/17/17 12:00 Oxygen Delivery Method Room Air Weight: 81.1 kg Body Mass Index (BMI) 24.2 Intake and Output for Last 24 Hours 07/15/17 07/16/17 07/17/17 23:59 23:59 23:59 Intake Total 1229.9 / 1229.9 Output Total 1150 / 1150 Balance 79.9 / 79.9 Assessment/Plan Patient seen and examined independently. Agree with the above note by the nurse practitioner. 1. 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 I have requested a gastro-graft and enema but will not be able to be performed until the eighth. * Per nursing, patient did have liquid stool in his vault. Patient will have a rectal management system in place. 2. Acute kidney injury * Baseline creatinine is around 1 * I suspect this is prerenal * Continue with IV fluids 3. Atrial fibrillation with RVR * still tachycardic despite amiogtt * dc amio gtt * cardizem bolus followed by gtt * likely exacerbated by #1 * CHADs-Vasc 3. High risk with OACs, utilize ASA. 4. DVT proph: sq heparin. I don't feel the patient has a UTI. Also, I do not feel the patient had sepsis nor severe sepsis on admission or subsequently. Code Visit Inpatient E&M: 14390 [facility] Hosp L3
[2017-07-17] MEDS: Acetaminophen 325 MG Tablet 650 MG PO (14:40)
[2017-07-17] MEDS: 0.9% NaCl Peripheral Flush Adult/Peds IV (14:50)
--- NOTE | 2017-07-17 23:50 | CT_ITS ---
STUDY: CT ABDOMEN AND PELVIS WITHOUT CONTRAST REASON FOR EXAM: Male, 81 years old. Left lower quadrant pain, elevated creatinine, history of hypertension, atrial fibrillation, prostate hypertrophy, inguinal hernia, cholecystectomy, part of stomach removed, unable to follow breathing instructions. RADIATION DOSAGE (If Supplied By Facility): CTDIvol = ( 7.85 ) mGy, DLP = ( 488.13 ) mGycm TECHNIQUE: Transaxial 2.5 mm images were obtained from the dome of the diaphragm to the symphysis pubis with oral contrast, and without intravenous contrast. Sagittal and coronal images were reconstructed. This examination is limited for the evaluation of gastrointestinal, solid organs and vascular structures due to the lack of intravenous contrast. Individualized dose optimization techniques were used for this CT. COMPARISON: CT abdomen pelvis 10/29/2012. MRI abdomen 10/31/2014. FINDINGS: Hyperinflation and mild chronic interstitial lung disease is stable. There is cardiac enlargement. There is coronary and valvular calcification. There is pericardial fluid anteriorly measuring 0.7, posteriorly along the left ventricle 2.1 cm which has increased in volume.. Normal liver. There are surgical clips in the gallbladder fossa consistent with a prior cholecystectomy. Previous significant biliary ductal dilatation has resolved. Normal spleen. There is stable atrophy of the pancreas. Normal bilateral adrenal glands. Normal right kidney. Normal left kidney. There is no obstructive uropathy, obstructive renal or ureteral calculi. Postsurgical changes of the stomach. Contrast in the proximal small bowel. Large bilateral inguinal hernias containing small bowel, left inguinal hernia contains small bowel with luminal contrast. There is no small bowel compromise or obstruction in either of the inguinal hernia. The right inguinal hernia measures 4.5 x 6 x 7 cm, the left inguinal hernia measures 6 x 8 x 9.6 cm with an opening of 3.1 cm. Opening of the right inguinal hernia measures 2.7 cm. Marked air distention of sigmoid and rectal colon with the wall thickening of the distal sigmoid colon and rectum. Sigmoid colon is elongated extending into the right upper abdomen There is caliber change along the proximal sigmoid colon. There is no peak versus volvulus. Significant amount of retained fecal material of the cecum to distal transverse/proximal descending colon. There is non-visualization of the appendix. There is atherosclerosis of the abdominal aorta, greater branches and pelvic arteries without aneurysm or leak. There is aortic ectasia. Normal inferior vena cava. Normal retroperitoneum. The catheter decompressing the urinary bladder. There are prostatic calcifications. There are degenerative changes of the lumbar spine, bilateral hip and sacroiliac joints. CT/Abdomen/Pel W ORAL Cont Only IMPRESSION: 1. Significant air distention of sigmoid colon and rectum with distal sigmoid and rectal wall thickening. There is caliber change of the proximal sigmoid colon which may be due to the distortion of anatomy/fracture of the distended colon. There is no evidence of a volvulus. Obstruction at the proximal sigmoid colon level appears doubtful. This can be further assessed with Gastrografin enema. 2. Stable significant redundancy of the rectosigmoid colon. 3. Resolution of previous significant biliary ductal dilatation. 4. Increased of pericardial fluid. 5. Increased size of bilateral inguinal hernia containing noncompromised and nonobstructed small bowel. 6. Stable pancreas involution, coronary artery disease, arteriosclerosis, chronic interstitial lung disease and degenerative changes. Electronically Signed: Farheen Segura MD at 2:35 EST , Service support ,
[2017-07-18] VITALS (11 sets, daily range): BP systolic 107–130; BP diastolic 60–69; PULSE 83–143; RESP 16–20; TEMP 36.5–37.3; O2SAT 94–95
[2017-07-18] MEDS: Acetaminophen 325 MG Tablet 650 MG PO ×3 (00:05→18:17)
[2017-07-18] MEDS: 0.9% Normal Saline 1,000 ML 60 ML IV (00:15)
[2017-07-18 06:27] LABS: ALB/GLOB Ratio 0.6 RATIO (0.9-2.4); AST(SGOT) 45 U/L (15-37); Absolute Lymphocyte Count 0.42 X10^3/ul (0.83-4.51); Absolute Neutrophil Count 1.5 X10^3/uL (2.0-7.7); Alanine Aminotransfer ALT/SGPT 72 U/L (16-61); Albumin, Serum 2.4 g/dL (3.2-5.0); Alkaline Phosphatase 137 U/L (45-117); Anion Gap 9 (5-15); BUN 42 mg/dL (7-18); BUN/Creat Ratio 38.2 RATIO (10-20); Basophil# 0.01 X10^3/uL; Basophil% 0.4 % (0-1); Calcium,Total 9.1 mg/dL (8.5-10.1); Chloride 113 mmol/L (98-107); EST Glomerular Filtration Rate 69 mL/min (>60); Eosinophil# 0.01 X10^3/uL; Eosinophils% 0.4 % (0-5); Est Glom Filt Rate - Afr Amer 83 mL/min (>60); Estimated Creatinine Clearance 59.77 ml/min; Globulin 4.1 g/dL (2.2-4.2); Glucose 97 mg/dL (74-106); Hematocrit 31.4 % (40-54); Hemoglobin 9.9 g/dl (13.0-16.5); Lymphocyte # 0.42 X10^3/ul (4.0); Lymphocyte % 18.4 % (19-41); Mean Corp Hgb Conc 31.5 g/gl (32-36); Mean Corpuscular Hgb 30.6 pg (27.0-32.0); Mean Corpuscular Volume 96.9 fL (80-94); Mean Platelet Vol. 10.3 fl (6.2-12.0); Monocyte# 0.38 X10^3/uL; Monocyte% 16.7 % (0-10); Neutrophil # 1.45 X10^3/uL (2.7-7.7); Neutrophil % 63.7 % (47-70); Platelet Count 130 K/mm3 (150-450); Potassium 3.9 mmol/L (3.5-5.1); Protein, Total 6.5 g/dL (6.4-8.2); RBC Distribution Width CV 16.7 % (11.6-14.6); RBC Distribution Width SD 59.3 fl (35.1-43.9); Red Blood Count 3.24 M/mm3 (4.6-6.2); Sodium Level 144 mmol/L (136-145); Thyroid Stim Hormone (TSH) 0.77 uIU/mL (0.358-3.74); White Blood Count 2.3 K/mm3 (4.4-11.0)
[2017-07-18 06:38] LABS: Differential Indicated SCAN CRITERIA MET; POSITIVE COUNT NO; POSITIVE DIFFERENTIAL YES; POSITIVE MORPHOLOGY YES
[2017-07-18 06:41] LABS: Differential Comment SCANNED
[2017-07-18] MEDS: Bisacodyl 10 MG Suppository RECTAL (07:46)
--- NOTE | 2017-07-18 08:00 | RAD_ITS ---
STUDY: GASTROGRAFIN ENEMA. REASON FOR EXAM: Male, 81 years old. Colonic dilatation. Fecal retention. FLUOROSCOPY TIME (if supplied): (1:15) minutes/seconds TECHNIQUE: Gastrografin was introduced retrograde through the rectum. Imaging was obtained. COMPARISON: Comparison is made with prior CT scan the abdomen and pelvis dated July 17, 2017. FINDINGS: This is a limited study due to the patient's condition. Contrast was introduced retrograde from the rectum. There is evidence of a polypoid lesion at the rectosigmoid junction. There is marked dilatation of the colon proximal to this abnormality with a large amount of gas and fecal material. RAD/Barium Enema No Air Cont IMPRESSION: Focal polypoid lesion with narrowing at the rectosigmoid junction. Electronically Signed: Aaron Hernandez MD at 9:07 EST Tel [phone], Service support ,
[2017-07-18] MEDS: Pantoprazole Sodium 20 MG Tablet PO (08:54)
[2017-07-18] MEDS: Tamsulosin HCl 0.4 MG Capsule PO (08:54)
[2017-07-18] MEDS: dilTIAZem CD 240 MG Capsule PO (08:54)
[2017-07-18] MEDS: Senna Tablet 2 TABLET PO ×2 (08:55→22:23)
[2017-07-18] MEDS: Escitalopram Oxalate 20 MG Tablet PO (08:55)
[2017-07-18] MEDS: Finasteride 5 MG Tablet PO (08:55)
[2017-07-18] MEDS: Magnesium Hydroxide 30 ML UDC PO (09:05)
--- NOTE | 2017-07-18 09:06 | CASEMGMT ---
Received a phone call from Jessy at [facility]. She asked about patient. She confirmed he would not need a pre-cert. ANNEMARIE faxed her more updated information. Madelyn CABAN MSW
[2017-07-18 09:16] LABS: Pathologist Review Reviewed
--- NOTE | 2017-07-18 13:46 | PCM.PROGNOTE ---
<Evin Lees - Last Filed: 07/18/17 13:46> Patient Problems: Active and Suspected Problems Atrial fibrillation with RVR (Acute) Raudel's syndrome (Acute) YENNI (acute kidney injury) (Acute) Subjective: Pt still with some abdominal pain and distention. He did have liquid stools this AM. He has no fever or chills. Brother is at bedside. Discussed gastrografin findings suggesting obstructive polyps and possibility of cancer and what sort of follow up they would want given patients DNRCC status and medical comorbidities. The brother is going to discuss this with his sister, however he is asking about surgical options. - Physical Exam General: Alert, Oriented x3, Cooperative HEENT: Atraumatic, PERRLA, EOMI, Normocephalic Neck: Supple, No JVD, Negative Carotid Bruits Lungs: Clear to auscultation, Normal air movement Cardiovascular: Regular rate, No murmurs Abdomen: Bowel Sounds Present, Soft, Non Tender Extremities: No edema, Capillary Refill Less than 3 Seconds Skin: No rashes, No breakdown Musculoskeletal: No Tenderness to Palpation of Joints or Extremities Neurological: Cranial nerves II-XII grossly intact Psych/Mental Status: Normal Affect, Appropriate, Alert and oriented to time, place, person, mood and affect Vital Signs Temp Pulse Resp BP Pulse Ox 99.2 F H 110 H 19 H 107/69 95 07/18/17 08:51 07/18/17 11:28 07/18/17 08:51 07/18/17 08:51 07/18/17 08:51 Oxygen Delivery Method Room Air Weight: 81.1 kg Body Mass Index (BMI) 24.2 Intake and Output for Last 24 Hours 07/16/17 07/17/17 07/18/17 23:59 23:59 23:59 Intake Total 2964.9 / 2964.9 1680 / 1680 Output Total 1925 / 1925 775 / 775 Balance 1039.9 / 1039.9 905 / 905 Laboratory Tests Past 24 Hrs 07/17/17 07/17/17 07/18/17 14:30 17:50 05:05 WBC 2.3 L RBC 3.24 L Hgb 9.9 L Hct 31.4 L MCV 96.9 H MCH 30.6 MCHC 31.5 L RDW 16.7 H RDW Differential 59.3 H Plt Count 130 L MPV 10.3 Immature Gran % (Auto) 0.400 Neut % (Auto) 63.7 Lymph % (Auto) 18.4 L [place] % (Auto) 16.7 H Eos % (Auto) 0.4 Baso % (Auto) 0.4 Absolute Neuts (auto) 1.5 L Absolute Lymphs (auto) 0.42 L Total Counted Not Reportable Differential Comment SCANNED Diff Path Review May foll Sodium Potassium Chloride Carbon Dioxide Anion Gap BUN Creatinine Estim Creat Clear Calc Est GFR (MDRD) Af Amer Est GFR (MDRD) Non-Af BUN/Creatinine Ratio Glucose Calcium Total Bilirubin AST ALT Alkaline Phosphatase Troponin I < 0.02 < 0.02 Total Protein Albumin Globulin Albumin/Globulin Ratio Carcinoembryonic Ag TSH 07/18/17 07/18/17 05:05 12:10 WBC RBC Hgb Hct MCV MCH MCHC RDW RDW Differential Plt Count MPV Immature Gran % (Auto) Neut % (Auto) Lymph % (Auto) [place] % (Auto) Eos % (Auto) Baso % (Auto) Absolute Neuts (auto) Absolute Lymphs (auto) Total Counted Differential Comment Diff Path Review Sodium 144 Potassium 3.9 Chloride 113 H Carbon Dioxide 22.0 Anion Gap 9 BUN 42 H Creatinine 1.10 Estim Creat Clear Calc 59.77 Est GFR (MDRD) Af Amer 83 Est GFR (MDRD) Non-Af 69 BUN/Creatinine Ratio 38.2 H Glucose 97 Calcium 9.1 Total Bilirubin 0.60 AST 45 H ALT 72 H Alkaline Phosphatase 137 H Troponin I Total Protein 6.5 Albumin 2.4 L Globulin 4.1 Albumin/Globulin Ratio 0.6 L Carcinoembryonic Ag Pending TSH 0.77 Assessment/Plan Active and Suspected Problems Atrial fibrillation with RVR (Acute) Raudel's syndrome (Acute) YENNI (acute kidney injury) (Acute) 1. Abdominal pain - gastrografin study suggesting obstructive polyp. CEA pending. Aggressive bowel regimen. TSH normal. Lipase negative. ALT/AST/Alk Phos elevated. Recheck in AM. High suspicion for colorectal cancer. Pt previously seen by Dr. Ortiz. Plan is to meet with brother and sister tomorrow to discuss what they would like done for the patient. Avoid opiates given current obstruction and hx of constipation, unless family does not want aggressive treatment, in which case hospice and more liberal pain control would be indicated. Barium Enema: Focal polypoid lesion with narrowing at the rectosigmoid junction. 2. Pancytopenia - trend. Avoid heparin products. 3. YENNI - resolved. 4. AF with RVR - improved but still tachy. On cardizem PO. Amio drip discontinued. This is likely 2/2 his significant abdominal pain. 5. MRDD - supportive care 6. BPH - flomax, proscar, peterson 7. HTN - stable 8. GERD - PPI 9. Debility - Wheelchair bound DVT ppx: SCDs This patient was seen by Evin Lees PA-C under the supervision of Doctor Nura. <Jose Antonio Lyman - Last Filed: 07/18/17 15:57> - Physical Exam General: Alert, Confused, - - Mumbles incoherently HEENT: Atraumatic, Normocephalic Lungs: Clear to auscultation, Normal air movement, No rhonchi, No wheeze Cardiovascular: Regular rate, Regular Rhythm, Normal S1, Normal S2 Abdomen: Bowel Sounds Present, Soft, Non Tender, Non-Distended Extremities: No edema, No Calf Tenderness Skin: No rashes, No breakdown Psych/Mental Status: Normal Affect, Appropriate Vital Signs Temp Pulse Resp BP Pulse Ox 37.3 C H 110 H 19 H 107/69 95 07/18/17 08:51 07/18/17 11:28 07/18/17 08:51 07/18/17 08:51 07/18/17 08:51 Oxygen Delivery Method Room Air Weight: 81.1 kg Body Mass Index (BMI) 24.2 Intake and Output for Last 24 Hours 07/16/17 07/17/17 07/18/17 23:59 23:59 23:59 Intake Total 2964.9 / 2964.9 1680 / 1680 Output Total 1925 / 1925 775 / 775 Balance 1039.9 / 1039.9 905 / 905 Laboratory Tests Past 24 Hrs 07/17/17 07/18/17 07/18/17 17:50 05:05 05:05 WBC 2.3 L RBC 3.24 L Hgb 9.9 L Hct 31.4 L MCV 96.9 H MCH 30.6 MCHC 31.5 L RDW 16.7 H RDW Differential 59.3 H Plt Count 130 L MPV 10.3 Immature Gran % (Auto) 0.400 Neut % (Auto) 63.7 Lymph % (Auto) 18.4 L [place] % (Auto) 16.7 H Eos % (Auto) 0.4 Baso % (Auto) 0.4 Absolute Neuts (auto) 1.5 L Absolute Lymphs (auto) 0.42 L Total Counted Not Reportable Differential Comment SCANNED Diff Path Review Reviewed Sodium 144 Potassium 3.9 Chloride 113 H Carbon Dioxide 22.0 Anion Gap 9 BUN 42 H Creatinine 1.10 Estim Creat Clear Calc 59.77 Est GFR (MDRD) Af Amer 83 Est GFR (MDRD) Non-Af 69 BUN/Creatinine Ratio 38.2 H Glucose 97 Calcium 9.1 Total Bilirubin 0.60 AST 45 H ALT 72 H Alkaline Phosphatase 137 H Troponin I < 0.02 Total Protein 6.5 Albumin 2.4 L Globulin 4.1 Albumin/Globulin Ratio 0.6 L Carcinoembryonic Ag TSH 0.77 07/18/17 12:10 WBC RBC Hgb Hct MCV MCH MCHC RDW RDW Differential Plt Count MPV Immature Gran % (Auto) Neut % (Auto) Lymph % (Auto) [place] % (Auto) Eos % (Auto) Baso % (Auto) Absolute Neuts (auto) Absolute Lymphs (auto) Total Counted Differential Comment Diff Path Review Sodium Potassium Chloride Carbon Dioxide Anion Gap BUN Creatinine Estim Creat Clear Calc Est GFR (MDRD) Af Amer Est GFR (MDRD) Non-Af BUN/Creatinine Ratio Glucose Calcium Total Bilirubin AST ALT Alkaline Phosphatase Troponin I Total Protein Albumin Globulin Albumin/Globulin Ratio Carcinoembryonic Ag Pending TSH Assessment/Plan 1. Colonic mass Appears to be causing a Near obstruction of his colon which may be causing his pain. Patient have repeat abdominal x-ray today. Discussed with the patient's brother, Jan, explained that the concern is for this being possibly cancer. He expressed that just to get a biopsy and then take care of it. I told him that much more complex than that and that by getting a biopsy is that you have to get a procedure to do the biopsy, such as a colonoscopy or flexible sigmoidoscopy, and then wait for the biopsy results and then develop treatment plan in regards to that. I quite honestly discouraged proceeding that route for him and recommended to more comfort measures for him. Patient's brother stated that he wanted to get more information before making any kind a decision about that. He requested we contact Dr. Ortiz about this. I personally page Dr. Ortiz but never heard back. I requested the records from Dr. Ortiz's office to further evaluate and assess what has been done for the patient previously as patient has apparently had endoscopy from Dr. Ortiz in the past. 2. Abdominal pain: Secondary to above. Follow-up x-ray. Given the obstruction or near obstruction would favor avoiding opiates as much as possible as it may facilitate worsening of this but ideally I would like to proceed with more palliation of his symptoms as I do not feel that aggressive surgical manner management would be in this patient's best interest given his poor performance status and mental retardation. Advance CARE planning: Spent 30 minutes outside of the history and physical discussing with the patient's brother about aggressiveness of care, palliation,. Code Visit Inpatient E&M: 77699 Subs Hosp L2 Procedures: 25044 Advncd Care Plan 30 Min
--- NOTE | 2017-07-18 14:03 | PN_ITS ---
<Evin Lees - Last Filed: 07/18/17 13:46> Patient Problems: Active and Suspected Problems Atrial fibrillation with RVR (Acute) Raudel's syndrome (Acute) YENNI (acute kidney injury) (Acute) Subjective: Pt still with some abdominal pain and distention. He did have liquid stools this AM. He has no fever or chills. Brother is at bedside. Discussed gastrografin findings suggesting obstructive polyps and possibility of cancer and what sort of follow up they would want given patients DNRCC status and medical comorbidities. The brother is going to discuss this with his sister, however he is asking about surgical options. - Physical Exam General: Alert, Oriented x3, Cooperative HEENT: Atraumatic, PERRLA, EOMI, Normocephalic Neck: Supple, No JVD, Negative Carotid Bruits Lungs: Clear to auscultation, Normal air movement Cardiovascular: Regular rate, No murmurs Abdomen: Bowel Sounds Present, Soft, Non Tender Extremities: No edema, Capillary Refill Less than 3 Seconds Skin: No rashes, No breakdown Musculoskeletal: No Tenderness to Palpation of Joints or Extremities Neurological: Cranial nerves II-XII grossly intact Psych/Mental Status: Normal Affect, Appropriate, Alert and oriented to time, place, person, mood and affect Vital Signs Temp Pulse Resp BP Pulse Ox 99.2 F H 110 H 19 H 107/69 95 07/18/17 08:51 07/18/17 11:28 07/18/17 08:51 07/18/17 08:51 07/18/17 08:51 Oxygen Delivery Method Room Air Weight: 81.1 kg Body Mass Index (BMI) 24.2 Intake and Output for Last 24 Hours 07/16/17 07/17/17 07/18/17 23:59 23:59 23:59 Intake Total 2964.9 / 2964.9 1680 / 1680 Output Total 1925 / 1925 775 / 775 Balance 1039.9 / 1039.9 905 / 905 Laboratory Tests Past 24 Hrs 07/17/17 07/17/17 07/18/17 14:30 17:50 05:05 WBC 2.3 L RBC 3.24 L Hgb 9.9 L Hct 31.4 L MCV 96.9 H MCH 30.6 MCHC 31.5 L RDW 16.7 H RDW Differential 59.3 H Plt Count 130 L MPV 10.3 Immature Gran % (Auto) 0.400 Neut % (Auto) 63.7 Lymph % (Auto) 18.4 L [place] % (Auto) 16.7 H Eos % (Auto) 0.4 Baso % (Auto) 0.4 Absolute Neuts (auto) 1.5 L Absolute Lymphs (auto) 0.42 L Total Counted Not Reportable Differential Comment SCANNED Diff Path Review May foll Sodium Potassium Chloride Carbon Dioxide Anion Gap BUN Creatinine Estim Creat Clear Calc Est GFR (MDRD) Af Amer Est GFR (MDRD) Non-Af BUN/Creatinine Ratio Glucose Calcium Total Bilirubin AST ALT Alkaline Phosphatase Troponin I < 0.02 < 0.02 Total Protein Albumin Globulin Albumin/Globulin Ratio Carcinoembryonic Ag TSH 07/18/17 07/18/17 05:05 12:10 WBC RBC Hgb Hct MCV MCH MCHC RDW RDW Differential Plt Count MPV Immature Gran % (Auto) Neut % (Auto) Lymph % (Auto) [place] % (Auto) Eos % (Auto) Baso % (Auto) Absolute Neuts (auto) Absolute Lymphs (auto) Total Counted Differential Comment Diff Path Review Sodium 144 Potassium 3.9 Chloride 113 H Carbon Dioxide 22.0 Anion Gap 9 BUN 42 H Creatinine 1.10 Estim Creat Clear Calc 59.77 Est GFR (MDRD) Af Amer 83 Est GFR (MDRD) Non-Af 69 BUN/Creatinine Ratio 38.2 H Glucose 97 Calcium 9.1 Total Bilirubin 0.60 AST 45 H ALT 72 H Alkaline Phosphatase 137 H Troponin I Total Protein 6.5 Albumin 2.4 L Globulin 4.1 Albumin/Globulin Ratio 0.6 L Carcinoembryonic Ag Pending TSH 0.77 Assessment/Plan Active and Suspected Problems Atrial fibrillation with RVR (Acute) Raudel's syndrome (Acute) YENNI (acute kidney injury) (Acute) 1. Abdominal pain - gastrografin study suggesting obstructive polyp. CEA pending. Aggressive bowel regimen. TSH normal. Lipase negative. ALT/AST/Alk Phos elevated. Recheck in AM. High suspicion for colorectal cancer. Pt previously seen by Dr. Ortiz. Plan is to meet with brother and sister tomorrow to discuss what they would like done for the patient. Avoid opiates given current obstruction and hx of constipation, unless family does not want aggressive treatment, in which case hospice and more liberal pain control would be indicated. Barium Enema: Focal polypoid lesion with narrowing at the rectosigmoid junction. 2. Pancytopenia - trend. Avoid heparin products. 3. YENNI - resolved. 4. AF with RVR - improved but still tachy. On cardizem PO. Amio drip discontinued. This is likely 2/2 his significant abdominal pain. 5. MRDD - supportive care 6. BPH - flomax, proscar, peterson 7. HTN - stable 8. GERD - PPI 9. Debility - Wheelchair bound DVT ppx: SCDs This patient was seen by Evin Lees PA-C under the supervision of Doctor Nura. <Jose Antonio Lyman - Last Filed: 07/18/17 15:57> - Physical Exam General: Alert, Confused, - - Mumbles incoherently HEENT: Atraumatic, Normocephalic Lungs: Clear to auscultation, Normal air movement, No rhonchi, No wheeze Cardiovascular: Regular rate, Regular Rhythm, Normal S1, Normal S2 Abdomen: Bowel Sounds Present, Soft, Non Tender, Non-Distended Extremities: No edema, No Calf Tenderness Skin: No rashes, No breakdown Psych/Mental Status: Normal Affect, Appropriate Vital Signs Temp Pulse Resp BP Pulse Ox 37.3 C H 110 H 19 H 107/69 95 07/18/17 08:51 07/18/17 11:28 07/18/17 08:51 07/18/17 08:51 07/18/17 08:51 Oxygen Delivery Method Room Air Weight: 81.1 kg Body Mass Index (BMI) 24.2 Intake and Output for Last 24 Hours 07/16/17 07/17/17 07/18/17 23:59 23:59 23:59 Intake Total 2964.9 / 2964.9 1680 / 1680 Output Total 1925 / 1925 775 / 775 Balance 1039.9 / 1039.9 905 / 905 Laboratory Tests Past 24 Hrs 07/17/17 07/18/17 07/18/17 17:50 05:05 05:05 WBC 2.3 L RBC 3.24 L Hgb 9.9 L Hct 31.4 L MCV 96.9 H MCH 30.6 MCHC 31.5 L RDW 16.7 H RDW Differential 59.3 H Plt Count 130 L MPV 10.3 Immature Gran % (Auto) 0.400 Neut % (Auto) 63.7 Lymph % (Auto) 18.4 L [place] % (Auto) 16.7 H Eos % (Auto) 0.4 Baso % (Auto) 0.4 Absolute Neuts (auto) 1.5 L Absolute Lymphs (auto) 0.42 L Total Counted Not Reportable Differential Comment SCANNED Diff Path Review Reviewed Sodium 144 Potassium 3.9 Chloride 113 H Carbon Dioxide 22.0 Anion Gap 9 BUN 42 H Creatinine 1.10 Estim Creat Clear Calc 59.77 Est GFR (MDRD) Af Amer 83 Est GFR (MDRD) Non-Af 69 BUN/Creatinine Ratio 38.2 H Glucose 97 Calcium 9.1 Total Bilirubin 0.60 AST 45 H ALT 72 H Alkaline Phosphatase 137 H Troponin I < 0.02 Total Protein 6.5 Albumin 2.4 L Globulin 4.1 Albumin/Globulin Ratio 0.6 L Carcinoembryonic Ag TSH 0.77 07/18/17 12:10 WBC RBC Hgb Hct MCV MCH MCHC RDW RDW Differential Plt Count MPV Immature Gran % (Auto) Neut % (Auto) Lymph % (Auto) [place] % (Auto) Eos % (Auto) Baso % (Auto) Absolute Neuts (auto) Absolute Lymphs (auto) Total Counted Differential Comment Diff Path Review Sodium Potassium Chloride Carbon Dioxide Anion Gap BUN Creatinine Estim Creat Clear Calc Est GFR (MDRD) Af Amer Est GFR (MDRD) Non-Af BUN/Creatinine Ratio Glucose Calcium Total Bilirubin AST ALT Alkaline Phosphatase Troponin I Total Protein Albumin Globulin Albumin/Globulin Ratio Carcinoembryonic Ag Pending TSH Assessment/Plan 1. Colonic mass * Appears to be causing a Near obstruction of his colon which may be causing his pain. * Patient have repeat abdominal x-ray today. * Discussed with the patient's brother, Jan, explained that the concern is for this being possibly cancer. He expressed that just to get a biopsy and then take care of it. I told him that much more complex than that and that by getting a biopsy is that you have to get a procedure to do the biopsy, such as a colonoscopy or flexible sigmoidoscopy, and then wait for the biopsy results and then develop treatment plan in regards to that. I quite honestly discouraged proceeding that route for him and recommended to more comfort measures for him. Patient's brother stated that he wanted to get more information before making any kind a decision about that. He requested we contact Dr. Ortiz about this. I personally page Dr. Ortiz but never heard back. I requested the records from Dr. Ortiz's office to further evaluate and assess what has been done for the patient previously as patient has apparently had endoscopy from Dr. Ortiz in the past. 2. Abdominal pain: * Secondary to above. * Follow-up x-ray. * Given the obstruction or near obstruction would favor avoiding opiates as much as possible as it may facilitate worsening of this but ideally I would like to proceed with more palliation of his symptoms as I do not feel that aggressive surgical manner management would be in this patient's best interest given his poor performance status and mental retardation. Advance CARE planning: Spent 30 minutes outside of the history and physical discussing with the patient's brother about aggressiveness of care, palliation,. Code Visit Inpatient E&M: 62198 Subs Hosp L2 Procedures: 70277 Advncd Care Plan 30 Min
[2017-07-18 14:12] LABS: Pathologist Review Reviewed
--- NOTE | 2017-07-18 15:29 | RAD_ITS ---
STUDY: X-RAY - ABDOMEN/PELVIS REASON FOR EXAM: Male, 81 years old. Abdominal distention TECHNIQUE: 1 view COMPARISON: Prior abdominal radiograph of July 17, 2017 and a barium enema of July 18, 2017. FINDINGS: Continued marked distention/dilatation and elongation of the sigmoid colon with some modest improvement from the prior radiograph of July 17, 2017. The contrast introduced during the earlier contrast enema linger's only in the distal colon. No evidence of free air or extravasation of contrast. Normal visualized osseous structures. RAD/Abdomen Single View IMPRESSION: Continued gaseous distention/dilatation and elongation of the sigmoid loop only modestly improved from July 18, 2017. Apparently negative for volvulus on the earlier barium enema. Most of the introduce contrast material has been evacuated except a small amount lingering in the rectosigmoid region. Negative for free air. Electronically Signed: Lyubov Brooks MD at 16:41 EST , Service support ,
[2017-07-18] MEDS: 0.9% NaCl Peripheral Flush Adult/Peds IV (22:23)
[2017-07-19 02:59] VITALS: PULSE 87
[2017-07-19 04:01] VITALS: BP 118/57; PULSE 85; RESP 20; TEMP 36.6; O2SAT 94
[2017-07-19 05:43] LABS: Absolute Neutrophil Count 2.2 X10^3/uL (2.0-7.7); Basophil# 0.01 X10^3/uL; Basophil% 0.3 % (0-1); Eosinophil# 0.04 X10^3/uL; Eosinophils% 1.2 % (0-5); Hematocrit 30.5 % (40-54); Hemoglobin 9.7 g/dl (13.0-16.5); Lymphocyte % 17.5 % (19-41); Mean Corp Hgb Conc 31.8 g/gl (32-36); Mean Corpuscular Hgb 30.8 pg (27.0-32.0); Mean Corpuscular Volume 96.8 fL (80-94); Mean Platelet Vol. 10.4 fl (6.2-12.0); Monocyte# 0.59 X10^3/uL; Monocyte% 17.2 % (0-10); Neutrophil # 2.16 X10^3/uL (2.7-7.7); Neutrophil % 62.9 % (47-70); Platelet Count 150 K/mm3 (150-450); RBC Distribution Width CV 16.1 % (11.6-14.6); RBC Distribution Width SD 55.2 fl (35.1-43.9); Red Blood Count 3.15 M/mm3 (4.6-6.2); White Blood Count 3.4 K/mm3 (4.4-11.0)
[2017-07-19 05:47] LABS: Differential Indicated SCAN CRITERIA MET; POSITIVE COUNT NO; POSITIVE DIFFERENTIAL YES; POSITIVE MORPHOLOGY YES
[2017-07-19 06:00] LABS: ALB/GLOB Ratio 0.6 RATIO (0.9-2.4); AST(SGOT) 39 U/L (15-37); Alanine Aminotransfer ALT/SGPT 65 U/L (16-61); Albumin, Serum 2.2 g/dL (3.2-5.0); Alkaline Phosphatase 144 U/L (45-117); Anion Gap 7 (5-15); BUN 24 mg/dL (7-18); BUN/Creat Ratio 33.7 RATIO (10-20); Calcium,Total 9.4 mg/dL (8.5-10.1); Chloride 112 mmol/L (98-107); Creatinine, Serum 0.71 mg/dL (0.70-1.30); EST Glomerular Filtration Rate 113 mL/min (>60); Est Glom Filt Rate - Afr Amer 137 mL/min (>60); Estimated Creatinine Clearance 65.74 ml/min; Globulin 3.9 g/dL (2.2-4.2); Glucose 94 mg/dL (74-106); Potassium 3.7 mmol/L (3.5-5.1); Protein, Total 6.1 g/dL (6.4-8.2); Sodium Level 144 mmol/L (136-145)
--- NOTE | 2017-07-19 06:24 | NURSING ---
Pt. experiencing one of his spells at this time. R arm and R leg weak unable to control. Pt. slurring words, R facial droop. VSS 97.5, 109/63, 57, 97% RA. Pt. states he has a frontal headache. pain 07/20.
[2017-07-19 06:25] LABS: Differential Comment SCANNED
--- NOTE | 2017-07-19 09:52 | PCA ---
FAXED OVER THE REQUEST FOR RECORDS OVER TO [facility] OFFICE HAS NOT CAME IN YET
[2017-07-19 10:00] VITALS: BP 126/63; PULSE 104; RESP 16; TEMP 36.7; O2SAT 96
[2017-07-19] MEDS: dilTIAZem CD 240 MG Capsule PO (10:32)
[2017-07-19] MEDS: Senna Tablet 2 TABLET PO ×2 (10:33→21:15)
[2017-07-19] MEDS: Tamsulosin HCl 0.4 MG Capsule PO (10:33)
[2017-07-19] MEDS: Finasteride 5 MG Tablet PO (10:34)
[2017-07-19] MEDS: Escitalopram Oxalate 20 MG Tablet PO (10:34)
[2017-07-19] MEDS: Pantoprazole Sodium 20 MG Tablet PO (10:34)
[2017-07-19] MEDS: Magnesium Hydroxide 30 ML UDC PO (10:36)
--- NOTE | 2017-07-19 11:00 | NURSING ---
this RN assuming care of pt at this time
[2017-07-19 11:33] LABS: Carcinoembryonic Antigen 6.8 ng/mL (0.0-4.7)
--- NOTE | 2017-07-19 13:31 | PCM.PROGNOTE ---
<Evin Lees - Last Filed: 07/19/17 13:31> Patient Problems: Active and Suspected Problems Atrial fibrillation with RVR (Acute) Raudel's syndrome (Acute) YENNI (acute kidney injury) (Acute) Subjective: The patient had several further watery stools overnight. He still complains of all over abdominal pain. I had a long meeting with his brother and sister today who are his next of kin who are unsure how much treatment and workup they would like. He is currently DNRCC which was placed by his prior POA who was his mother. She has about 5 years ago. We talked at length about possible workups and possible interventions, and explained that while comfort care I would continue conservative therapy with stool softeners. He has had some relief since yesterday. They are planning to discuss this further and try to come up with an answer about what to do later. They are considering rescinding his DNRCC status but have not done so at this time. - Physical Exam General: Alert, Cooperative, - - a/ox1 HEENT: Atraumatic, PERRLA, EOMI, Normocephalic Neck: Supple, No JVD, Negative Carotid Bruits Lungs: Clear to auscultation, Normal air movement Cardiovascular: Regular rate, No murmurs Abdomen: Bowel Sounds Present, Soft, Hypoactive Bowel Sounds, Distended - less so than yesterday, Tender - diffusely, no guarding or rigidity Extremities: No edema, Capillary Refill Less than 3 Seconds Skin: No rashes, No breakdown Musculoskeletal: No Tenderness to Palpation of Joints or Extremities Neurological: Cranial nerves II-XII grossly intact Psych/Mental Status: Normal Affect, Appropriate Vital Signs Temp Pulse Resp BP Pulse Ox 98.1 F 104 H 16 126/63 H 96 07/19/17 10:00 07/19/17 10:00 07/19/17 10:00 07/19/17 10:00 07/19/17 10:00 Oxygen Delivery Method Room Air Weight: 81.1 kg Body Mass Index (BMI) 24.2 Intake and Output for Last 24 Hours 07/17/17 07/18/17 07/19/17 23:59 23:59 23:59 Intake Total 2964.9 / 2964.9 2525 / 2525 640 / 640 Output Total 1925 / 1925 1350 / 1350 665 / 665 Balance 1039.9 / 1039.9 1175 / 1175 -25 / -25 Laboratory Tests Past 24 Hrs 07/18/17 07/18/17 07/19/17 05:05 12:10 05:02 WBC 3.4 L RBC 3.15 L Hgb 9.7 L Hct 30.5 L MCV 96.8 H MCH 30.8 MCHC 31.8 L RDW 16.1 H RDW Differential 55.2 H Plt Count 150 MPV 10.4 Immature Gran % (Auto) 0.900 Neut % (Auto) 62.9 Lymph % (Auto) 17.5 L [place] % (Auto) 17.2 H Eos % (Auto) 1.2 Baso % (Auto) 0.3 Absolute Neuts (auto) 2.2 Absolute Lymphs (auto) 0.60 L Total Counted Not Reportable Differential Comment SCANNED Diff Path Review Reviewed Sodium Potassium Chloride Carbon Dioxide Anion Gap BUN Creatinine Estim Creat Clear Calc Est GFR (MDRD) Af Amer Est GFR (MDRD) Non-Af BUN/Creatinine Ratio Glucose Calcium Total Bilirubin AST ALT Alkaline Phosphatase Total Protein Albumin Globulin Albumin/Globulin Ratio Carcinoembryonic Ag 6.8 H 07/19/17 05:02 WBC RBC Hgb Hct MCV MCH MCHC RDW RDW Differential Plt Count MPV Immature Gran % (Auto) Neut % (Auto) Lymph % (Auto) [place] % (Auto) Eos % (Auto) Baso % (Auto) Absolute Neuts (auto) Absolute Lymphs (auto) Total Counted Differential Comment Diff Path Review Sodium 144 Potassium 3.7 Chloride 112 H Carbon Dioxide 25.0 Anion Gap 7 BUN 24 H Creatinine 0.71 Estim Creat Clear Calc 65.74 Est GFR (MDRD) Af Amer 137 Est GFR (MDRD) Non-Af 113 BUN/Creatinine Ratio 33.7 H Glucose 94 Calcium 9.4 Total Bilirubin 0.50 AST 39 H ALT 65 H Alkaline Phosphatase 144 H Total Protein 6.1 L Albumin 2.2 L Globulin 3.9 Albumin/Globulin Ratio 0.6 L Carcinoembryonic Ag Assessment/Plan Active and Suspected Problems Atrial fibrillation with RVR (Acute) [place]'s syndrome (Acute) YENNI (acute kidney injury) (Acute) 1. Abdominal pain - He appears somewhat improved today with less distention which is supported by his last KUB yesterday showing modest improvement. He still complains of all over abdominal pain and still has some distention, however he has no guarding or rigidity and has had several watery stools overnight. Gastrografin study suggests obstructive polyp. CEA pending. Continue aggressive bowel regimen. TSH normal. Lipase negative. ALT/AST/Alk Phos elevated. High suspicion for colorectal cancer. Conservative care only unless patients family decides to rescind DNRCC status. Pt previously seen by Dr. Ortiz. Barium Enema: Focal polypoid lesion with narrowing at the rectosigmoid junction. 2. Pancytopenia - trend. Platelets have improved. Avoid heparin products. 3. YENNI - resolved. 4. AF with RVR - improved. On cardizem PO. This is likely 2/2 his significant abdominal pain. There was some pericardial fluid noted on his CT of the abdomen in the ER. IV fluids have been discontinued. 5. MRDD - supportive care 6. BPH - flomax, proscar, peterson 7. HTN - stable 8. GERD - PPI 9. Debility - Wheelchair bound 10. ESBL in urine - I do not feel that he has an acute UTI, but asymptomatic bacteriuria. Pt will remain in isolation per protocol. DVT ppx: SCDs This patient was seen by Evin Lees PA-C under the supervision of Doctor Nura. <Jose Antonio Lyman - Last Filed: 07/20/17 08:44> - Physical Exam General: Alert, - - a/ox1. establishes eye contact. grunts answers, but unclear how much he understands. HEENT: Atraumatic, Normocephalic Lungs: Clear to auscultation, Normal air movement, No rhonchi, No wheeze Cardiovascular: Regular rate, Regular Rhythm, Normal S1, Normal S2, No murmurs Abdomen: Bowel Sounds Present, Hypoactive Bowel Sounds, Distended, Tender Psych/Mental Status: Normal Affect, Appropriate Vital Signs Temp Pulse Resp BP Pulse Ox 36.8 C 68 18 124/60 H 95 07/20/17 03:20 07/20/17 03:20 07/20/17 03:20 07/20/17 03:20 07/20/17 03:20 Oxygen Delivery Method Room Air Weight: 81.1 kg Body Mass Index (BMI) 24.2 Intake and Output for Last 24 Hours 07/18/17 07/19/17 07/20/17 23:59 23:59 23:59 Intake Total 2525 / 2525 1000 / 1000 560 / 560 Output Total 1350 / 1350 1015 / 1015 650 / 650 Balance 1175 / 1175 -15 / -15 -90 / -90 Laboratory Tests Past 24 Hrs 07/18/17 07/20/17 12:10 06:05 WBC 4.2 L RBC 3.48 L Hgb 10.5 L Hct 33.6 L MCV 96.6 H MCH 30.2 MCHC 31.3 L RDW 16.3 H RDW Differential 57.7 H Plt Count 157 MPV 9.8 Immature Gran % (Auto) 1.000 H Neut % (Auto) 68.1 Lymph % (Auto) 14.3 L [place] % (Auto) 15.0 H Eos % (Auto) 1.4 Baso % (Auto) 0.2 Absolute Neuts (auto) 2.9 Absolute Lymphs (auto) 0.60 L Total Counted Not Reportable Differential Comment SCANNED Carcinoembryonic Ag 6.8 H Assessment/Plan Late edition. Pt seen and examined independently on 07/19. I agree with the above PA note. 1. Colonic mass Appears to be causing a Near obstruction of his colon which may be causing his pain. Patient have repeat abdominal x-ray today. No records from Dr. Ortiz's office. I did not hear back from Dr. Ortiz on 07/18. Awaiting on definitive decision from family 2. Abdominal pain: Secondary to above. Follow-up x-ray. Given the obstruction or near obstruction would favor avoiding opiates as much as possible as it may facilitate worsening of this but ideally I would like to proceed with more palliation of his symptoms as I do not feel that aggressive surgical manner management would be in this patient's best interest given his poor performance status and mental retardation. Code Visit Inpatient E&M: [id number] Subs Hosp L2 - billing for 07/19
--- NOTE | 2017-07-19 13:41 | PN_ITS ---
<Evin Lees - Last Filed: 07/19/17 13:31> Patient Problems: Active and Suspected Problems Atrial fibrillation with RVR (Acute) Raudel's syndrome (Acute) YENNI (acute kidney injury) (Acute) Subjective: The patient had several further watery stools overnight. He still complains of all over abdominal pain. I had a long meeting with his brother and sister today who are his next of kin who are unsure how much treatment and workup they would like. He is currently DNRCC which was placed by his prior POA who was his mother. She has about 5 years ago. We talked at length about possible workups and possible interventions, and explained that while comfort care I would continue conservative therapy with stool softeners. He has had some relief since yesterday. They are planning to discuss this further and try to come up with an answer about what to do later. They are considering rescinding his DNRCC status but have not done so at this time. - Physical Exam General: Alert, Cooperative, - - a/ox1 HEENT: Atraumatic, PERRLA, EOMI, Normocephalic Neck: Supple, No JVD, Negative Carotid Bruits Lungs: Clear to auscultation, Normal air movement Cardiovascular: Regular rate, No murmurs Abdomen: Bowel Sounds Present, Soft, Hypoactive Bowel Sounds, Distended - less so than yesterday, Tender - diffusely, no guarding or rigidity Extremities: No edema, Capillary Refill Less than 3 Seconds Skin: No rashes, No breakdown Musculoskeletal: No Tenderness to Palpation of Joints or Extremities Neurological: Cranial nerves II-XII grossly intact Psych/Mental Status: Normal Affect, Appropriate Vital Signs Temp Pulse Resp BP Pulse Ox 98.1 F 104 H 16 126/63 H 96 07/19/17 10:00 07/19/17 10:00 07/19/17 10:00 07/19/17 10:00 07/19/17 10:00 Oxygen Delivery Method Room Air Weight: 81.1 kg Body Mass Index (BMI) 24.2 Intake and Output for Last 24 Hours 07/17/17 07/18/17 07/19/17 23:59 23:59 23:59 Intake Total 2964.9 / 2964.9 2525 / 2525 640 / 640 Output Total 1925 / 1925 1350 / 1350 665 / 665 Balance 1039.9 / 1039.9 1175 / 1175 -25 / -25 Laboratory Tests Past 24 Hrs 07/18/17 07/18/17 07/19/17 05:05 12:10 05:02 WBC 3.4 L RBC 3.15 L Hgb 9.7 L Hct 30.5 L MCV 96.8 H MCH 30.8 MCHC 31.8 L RDW 16.1 H RDW Differential 55.2 H Plt Count 150 MPV 10.4 Immature Gran % (Auto) 0.900 Neut % (Auto) 62.9 Lymph % (Auto) 17.5 L [place] % (Auto) 17.2 H Eos % (Auto) 1.2 Baso % (Auto) 0.3 Absolute Neuts (auto) 2.2 Absolute Lymphs (auto) 0.60 L Total Counted Not Reportable Differential Comment SCANNED Diff Path Review Reviewed Sodium Potassium Chloride Carbon Dioxide Anion Gap BUN Creatinine Estim Creat Clear Calc Est GFR (MDRD) Af Amer Est GFR (MDRD) Non-Af BUN/Creatinine Ratio Glucose Calcium Total Bilirubin AST ALT Alkaline Phosphatase Total Protein Albumin Globulin Albumin/Globulin Ratio Carcinoembryonic Ag 6.8 H 07/19/17 05:02 WBC RBC Hgb Hct MCV MCH MCHC RDW RDW Differential Plt Count MPV Immature Gran % (Auto) Neut % (Auto) Lymph % (Auto) [place] % (Auto) Eos % (Auto) Baso % (Auto) Absolute Neuts (auto) Absolute Lymphs (auto) Total Counted Differential Comment Diff Path Review Sodium 144 Potassium 3.7 Chloride 112 H Carbon Dioxide 25.0 Anion Gap 7 BUN 24 H Creatinine 0.71 Estim Creat Clear Calc 65.74 Est GFR (MDRD) Af Amer 137 Est GFR (MDRD) Non-Af 113 BUN/Creatinine Ratio 33.7 H Glucose 94 Calcium 9.4 Total Bilirubin 0.50 AST 39 H ALT 65 H Alkaline Phosphatase 144 H Total Protein 6.1 L Albumin 2.2 L Globulin 3.9 Albumin/Globulin Ratio 0.6 L Carcinoembryonic Ag Assessment/Plan Active and Suspected Problems Atrial fibrillation with RVR (Acute) [place]'s syndrome (Acute) YENNI (acute kidney injury) (Acute) 1. Abdominal pain - He appears somewhat improved today with less distention which is supported by his last KUB yesterday showing modest improvement. He still complains of all over abdominal pain and still has some distention, however he has no guarding or rigidity and has had several watery stools overnight. Gastrografin study suggests obstructive polyp. CEA pending. Continue aggressive bowel regimen. TSH normal. Lipase negative. ALT/AST/Alk Phos elevated. High suspicion for colorectal cancer. Conservative care only unless patients family decides to rescind DNRCC status. Pt previously seen by Dr. Ortiz. Barium Enema: Focal polypoid lesion with narrowing at the rectosigmoid junction. 2. Pancytopenia - trend. Platelets have improved. Avoid heparin products. 3. YENNI - resolved. 4. AF with RVR - improved. On cardizem PO. This is likely 2/2 his significant abdominal pain. There was some pericardial fluid noted on his CT of the abdomen in the ER. IV fluids have been discontinued. 5. MRDD - supportive care 6. BPH - flomax, proscar, peterson 7. HTN - stable 8. GERD - PPI 9. Debility - Wheelchair bound 10. ESBL in urine - I do not feel that he has an acute UTI, but asymptomatic bacteriuria. Pt will remain in isolation per protocol. DVT ppx: SCDs This patient was seen by Evin Lees PA-C under the supervision of Doctor Nura. <Jose Antonio Lyman - Last Filed: 07/20/17 08:44> - Physical Exam General: Alert, - - a/ox1. establishes eye contact. grunts answers, but unclear how much he understands. HEENT: Atraumatic, Normocephalic Lungs: Clear to auscultation, Normal air movement, No rhonchi, No wheeze Cardiovascular: Regular rate, Regular Rhythm, Normal S1, Normal S2, No murmurs Abdomen: Bowel Sounds Present, Hypoactive Bowel Sounds, Distended, Tender Psych/Mental Status: Normal Affect, Appropriate Vital Signs Temp Pulse Resp BP Pulse Ox 36.8 C 68 18 124/60 H 95 07/20/17 03:20 07/20/17 03:20 07/20/17 03:20 07/20/17 03:20 07/20/17 03:20 Oxygen Delivery Method Room Air Weight: 81.1 kg Body Mass Index (BMI) 24.2 Intake and Output for Last 24 Hours 07/18/17 07/19/17 07/20/17 23:59 23:59 23:59 Intake Total 2525 / 2525 1000 / 1000 560 / 560 Output Total 1350 / 1350 1015 / 1015 650 / 650 Balance 1175 / 1175 -15 / -15 -90 / -90 Laboratory Tests Past 24 Hrs 07/18/17 07/20/17 12:10 06:05 WBC 4.2 L RBC 3.48 L Hgb 10.5 L Hct 33.6 L MCV 96.6 H MCH 30.2 MCHC 31.3 L RDW 16.3 H RDW Differential 57.7 H Plt Count 157 MPV 9.8 Immature Gran % (Auto) 1.000 H Neut % (Auto) 68.1 Lymph % (Auto) 14.3 L [place] % (Auto) 15.0 H Eos % (Auto) 1.4 Baso % (Auto) 0.2 Absolute Neuts (auto) 2.9 Absolute Lymphs (auto) 0.60 L Total Counted Not Reportable Differential Comment SCANNED Carcinoembryonic Ag 6.8 H Assessment/Plan Late edition. Pt seen and examined independently on 07/19. I agree with the above PA note. 1. Colonic mass * Appears to be causing a Near obstruction of his colon which may be causing his pain. * Patient have repeat abdominal x-ray today. * No records from Dr. Ortiz's office. I did not hear back from Dr. Ortiz on 07/18. * Awaiting on definitive decision from family 2. Abdominal pain: * Secondary to above. * Follow-up x-ray. * Given the obstruction or near obstruction would favor avoiding opiates as much as possible as it may facilitate worsening of this but ideally I would like to proceed with more palliation of his symptoms as I do not feel that aggressive surgical manner management would be in this patient's best interest given his poor performance status and mental retardation. Code Visit Inpatient E&M: [id number] Subs Hosp L2 - billing for 07/19
[2017-07-19 15:21] VITALS: BP 104/68; PULSE 107; RESP 14; TEMP 36.8; O2SAT 96
[2017-07-19 21:20] VITALS: BP 118/63; PULSE 74; RESP 18; TEMP 36.9; O2SAT 96
[2017-07-20 03:20] VITALS: BP 124/60; PULSE 68; RESP 18; TEMP 36.8; O2SAT 95
[2017-07-20 06:33] LABS: Absolute Neutrophil Count 2.9 X10^3/uL (2.0-7.7); Basophil# 0.01 X10^3/uL; Basophil% 0.2 % (0-1); Eosinophil# 0.06 X10^3/uL; Eosinophils% 1.4 % (0-5); Hematocrit 33.6 % (40-54); Hemoglobin 10.5 g/dl (13.0-16.5); Lymphocyte % 14.3 % (19-41); Mean Corp Hgb Conc 31.3 g/gl (32-36); Mean Corpuscular Hgb 30.2 pg (27.0-32.0); Mean Corpuscular Volume 96.6 fL (80-94); Mean Platelet Vol. 9.8 fl (6.2-12.0); Monocyte# 0.63 X10^3/uL; Neutrophil # 2.87 X10^3/uL (2.7-7.7); Neutrophil % 68.1 % (47-70); Platelet Count 157 K/mm3 (150-450); RBC Distribution Width CV 16.3 % (11.6-14.6); RBC Distribution Width SD 57.7 fl (35.1-43.9); Red Blood Count 3.48 M/mm3 (4.6-6.2); White Blood Count 4.2 K/mm3 (4.4-11.0)
[2017-07-20 06:41] LABS: Differential Indicated SCAN CRITERIA MET; POSITIVE COUNT NO; POSITIVE DIFFERENTIAL YES; POSITIVE MORPHOLOGY YES
[2017-07-20 07:27] LABS: Differential Comment SCANNED
--- NOTE | 2017-07-20 08:44 | PCM.PN.HOSP ---
Patient Problems: Active and Suspected Problems Atrial fibrillation with RVR (Acute) [place]'s syndrome (Acute) YENNI (acute kidney injury) (Acute) Subjective: difficult to communicate with patient given his speech limitations. Vitals/I&O's: Vital Signs Temp Pulse Resp BP Pulse Ox 36.8 C 68 18 124/60 H 95 07/20/17 03:20 07/20/17 03:20 07/20/17 03:20 07/20/17 03:20 07/20/17 03:20 Oxygen Delivery Method Room Air Weight: 81.1 kg Body Mass Index (BMI) 24.2 Intake and Output for Last 24 Hours 07/18/17 07/19/17 07/20/17 23:59 23:59 23:59 Intake Total 2525 / 2525 1000 / 1000 560 / 560 Output Total 1350 / 1350 1015 / 1015 650 / 650 Balance 1175 / 1175 -15 / -15 -90 / -90 General: Alert, Cooperative, No apparent distress HEENT: Atraumatic, Normocephalic Neck: No Nodes, Thyroid Normal Size and Texture Lungs: Clear to auscultation, Normal air movement, No rhonchi, No wheeze Cardiovascular: Regular rate, Regular Rhythm, Normal S1, Normal S2, No murmurs Abdomen: Hypoactive Bowel Sounds, Distended, Tender Extremities: No edema, No Calf Tenderness Skin: No rashes, No breakdown Musculoskeletal: No Tenderness to Palpation of Joints or Extremities, No Muscle Wasting Psych/Mental Status: Normal Affect, Appropriate Laboratory Results 07/18/17 12:10: Carcinoembryonic Ag 6.8 H 07/20/17 06:05: WBC 4.2 L, RBC 3.48 L, Hgb 10.5 L, Hct 33.6 L, MCV 96.6 H, MCH 30.2, MCHC 31.3 L, RDW 16.3 H, RDW Differential 57.7 H, Plt Count 157, MPV 9.8, Immature Gran % (Auto) 1.000 H, Neut % (Auto) 68.1, Lymph % (Auto) 14.3 L, [place] % (Auto) 15.0 H, Eos % (Auto) 1.4, Baso % (Auto) 0.2, Absolute Neuts (auto) 2.9, Absolute Lymphs (auto) 0.60 L, Total Counted Not Reportable, Differential Comment SCANNED Current Medications Acetaminophen (Tylenol) 650 mg PO Q6H PRN PRN PRN Reason: Fever, headache, pain Last Admin: 07/18/17 18:17 Dose: 650 mg Diltiazem HCl (Cardizem Cd) [address] [facility] Last Admin: 07/19/17 10:32 Dose: 240 mg Escitalopram Oxalate (Lexapro) [address] [facility] Last Admin: 07/19/17 10:34 Dose: 20 mg Finasteride (Proscar) [address] [facility] Last Admin: 07/19/17 10:34 Dose: 5 mg Magnesium Hydroxide (Milk Of Magnesia) [address] [facility] Last Admin: 07/19/17 10:36 Dose: 30 ml Nutritional Formula (Lactose Free) (Ensure Clear) 120 ml PO 4X/DAY [facility] Last Admin: 07/19/17 21:15 Dose: 120 ml Ondansetron HCl (Zofran) 4 mg IV Q6H PRN PRN PRN Reason: NAUSEA/VOMITING Pantoprazole Sodium (Protonix) [address] [facility] Last Admin: 07/19/17 10:34 Dose: 20 mg Senna (Senokot) [address] [facility] Last Admin: 07/19/17 21:15 Dose: 2 tablet Sodium Chloride () 5 - 30 ml IV UD PRN PRN Reason: SALINE FLUSH Last Admin: 07/18/17 22:23 Dose: 10 ml Tamsulosin HCl (Flomax) 0.[address] [facility] Last Admin: 07/19/17 10:33 Dose: 0.4 mg Assessment/Plan Active and Suspected Problems Atrial fibrillation with RVR (Acute) Raudel's syndrome (Acute) YENNI (acute kidney injury) (Acute) 1. Colonic mass Appears to be causing a Near obstruction of his colon which may be causing his pain. Patient have repeat abdominal x-ray today. No records from Dr. Ortiz's office. I did not hear back from Dr. Ortiz on 07/18. Brother Jan, the plan is for the patient to proceed with palliative care. I explained him that he would not know when or if is going to be completely obstructed due to this mass but if it is colon cancer is usually very slow growing process. Requesting palliative care. Of her diet recommendations I would just recommend thin liquids and mechanical soft make sure the patient has very regular soft bowel movements. 2. Abdominal pain: Secondary to above. Follow-up x-ray. Given the obstruction or near obstruction would favor avoiding opiates as much as possible as it may facilitate worsening of this but ideally I would like to proceed with more palliation of his symptoms as I do not feel that aggressive surgical manner management would be in this patient's best interest given his poor performance status and mental retardation.
--- NOTE | 2017-07-20 08:55 | PN_ITS ---
Patient Problems: Active and Suspected Problems Atrial fibrillation with RVR (Acute) [place]'s syndrome (Acute) YENNI (acute kidney injury) (Acute) Subjective: difficult to communicate with patient given his speech limitations. Vitals/I&O's: Vital Signs Temp Pulse Resp BP Pulse Ox 36.8 C 68 18 124/60 H 95 07/20/17 03:20 07/20/17 03:20 07/20/17 03:20 07/20/17 03:20 07/20/17 03:20 Oxygen Delivery Method Room Air Weight: 81.1 kg Body Mass Index (BMI) 24.2 Intake and Output for Last 24 Hours 07/18/17 07/19/17 07/20/17 23:59 23:59 23:59 Intake Total 2525 / 2525 1000 / 1000 560 / 560 Output Total 1350 / 1350 1015 / 1015 650 / 650 Balance 1175 / 1175 -15 / -15 -90 / -90 General: Alert, Cooperative, No apparent distress HEENT: Atraumatic, Normocephalic Neck: No Nodes, Thyroid Normal Size and Texture Lungs: Clear to auscultation, Normal air movement, No rhonchi, No wheeze Cardiovascular: Regular rate, Regular Rhythm, Normal S1, Normal S2, No murmurs Abdomen: Hypoactive Bowel Sounds, Distended, Tender Extremities: No edema, No Calf Tenderness Skin: No rashes, No breakdown Musculoskeletal: No Tenderness to Palpation of Joints or Extremities, No Muscle Wasting Psych/Mental Status: Normal Affect, Appropriate Laboratory Results 07/18/17 12:10: Carcinoembryonic Ag 6.8 H 07/20/17 06:05: WBC 4.2 L, RBC 3.48 L, Hgb 10.5 L, Hct 33.6 L, MCV 96.6 H, MCH 30.2, MCHC 31.3 L, RDW 16.3 H, RDW Differential 57.7 H, Plt Count 157, MPV 9.8, Immature Gran % (Auto) 1.000 H, Neut % (Auto) 68.1, Lymph % (Auto) 14.3 L, [place] % (Auto) 15.0 H, Eos % (Auto) 1.4, Baso % (Auto) 0.2, Absolute Neuts (auto) 2.9 , Absolute Lymphs (auto) 0.60 L, Total Counted Not Reportable, Differential Comment SCANNED Current Medications Acetaminophen (Tylenol) 650 mg PO Q6H PRN PRN PRN Reason: Fever, headache, pain Last Admin: 07/18/17 18:17 Dose: 650 mg Diltiazem HCl (Cardizem Cd) 240 mg PO DAILY [facility] Last Admin: 07/19/17 10:32 Dose: 240 mg Escitalopram Oxalate (Lexapro) 20 mg PO DAILY [facility] Last Admin: 07/19/17 10:34 Dose: 20 mg Finasteride (Proscar) 5 mg PO DAILY [facility] Last Admin: 07/19/17 10:34 Dose: 5 mg Magnesium Hydroxide (Milk Of Magnesia) 30 ml PO DAILY [facility] Last Admin: 07/19/17 10:36 Dose: 30 ml Nutritional Formula (Lactose Free) (Ensure Clear) 120 ml PO 4X/DAY [facility] Last Admin: 07/19/17 21:15 Dose: 120 ml Ondansetron HCl (Zofran) 4 mg IV Q6H PRN PRN PRN Reason: NAUSEA/VOMITING Pantoprazole Sodium (Protonix) 20 mg PO DAILY [facility] Last Admin: 07/19/17 10:34 Dose: 20 mg Senna (Senokot) 2 tablet PO BID [facility] Last Admin: 07/19/17 21:15 Dose: 2 tablet Sodium Chloride () 5 - 30 ml IV UD PRN PRN Reason: SALINE FLUSH Last Admin: 07/18/17 22:23 Dose: 10 ml Tamsulosin HCl (Flomax) 0.4 mg PO DAILY [facility] Last Admin: 07/19/17 10:33 Dose: 0.4 mg Assessment/Plan Active and Suspected Problems Atrial fibrillation with RVR (Acute) Raudel's syndrome (Acute) YENNI (acute kidney injury) (Acute) 1. Colonic mass * Appears to be causing a Near obstruction of his colon which may be causing his pain. * Patient have repeat abdominal x-ray today. * No records from Dr. Ortiz's office. I did not hear back from Dr. Ortiz on 07/18. * Brother Jan, the plan is for the patient to proceed with palliative care. I explained him that he would not know when or if is going to be completely obstructed due to this mass but if it is colon cancer is usually very slow growing process. Requesting palliative care. * Of her diet recommendations I would just recommend thin liquids and mechanical soft make sure the patient has very regular soft bowel movements. 2. Abdominal pain: * Secondary to above. * Follow-up x-ray. * Given the obstruction or near obstruction would favor avoiding opiates as much as possible as it may facilitate worsening of this but ideally I would like to proceed with more palliation of his symptoms as I do not feel that aggressive surgical manner management would be in this patient's best interest given his poor performance status and mental retardation.
--- NOTE | 2017-07-20 09:03 | PCM.TXEXTCAR ---
- Diet 07/17/17 04:05 Diet: Clear Liquid Food consistency:: N/A - Liquid only Liquid Consistency:: Regular/Thin - Routine Orders/Code Status Enema Type: [place] Code Status: DNRCC - Wound(s) B/L Knees Wound Type: Abrasion - Allergies/Procedures Done in Hospital Allergies/Adverse Reactions: Allergies No Known Allergies Allergy (Verified 07/16/17 23:28) - Type of Care/Length of Stay Estimated LOS: More Than 30 Days Type of Care Needed: Jail/Assisted Living Rehab Potential: Poor Prognosis: Poor - Additional Orders/Day of Discharge Day of Discharge: 07/20/17 - Dietary and Speech Recommendations Dietitian Recommendations/Changes: Rec adv diet as tolerated to regular, no gastric stimulant/low residue. 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 - Follow Up Care Primary Care Physician: Jan Almanza MD [Primary Care Provider] - Within 2 Weeks
[2017-07-20] MEDS: Tamsulosin HCl 0.4 MG Capsule PO (09:07)
[2017-07-20] MEDS: Pantoprazole Sodium 20 MG Tablet PO (09:07)
[2017-07-20] MEDS: Senna Tablet 2 TABLET PO (09:07)
[2017-07-20] MEDS: Escitalopram Oxalate 20 MG Tablet PO (09:07)
[2017-07-20] MEDS: Magnesium Hydroxide 30 ML UDC PO (09:07)
[2017-07-20] MEDS: Finasteride 5 MG Tablet PO (09:07)
--- NOTE | 2017-07-20 09:07 | TREXTCAR_ITS ---
- Diet 07/17/17 04:05 Diet: Clear Liquid Food consistency:: N/A - Liquid only Liquid Consistency:: Regular/Thin - Routine Orders/Code Status Enema Type: Fleetz Code Status: DNRCC - Wound(s) B/L Knees Wound Type: Abrasion - Allergies/Procedures Done in Hospital Allergies/Adverse Reactions: Allergies No Known Allergies Allergy (Verified 07/16/17 23:28) - Type of Care/Length of Stay Estimated LOS: More Than 30 Days Type of Care Needed: Group Home/Assisted Living Rehab Potential: Poor Prognosis: Poor - Additional Orders/Day of Discharge Day of Discharge: 07/20/17 - Dietary and Speech Recommendations Dietitian Recommendations/Changes: Rec adv diet as tolerated to regular, no gastric stimulant/low residue. [facility] soft diet at [facility]- may benefit from MATERIALS AND PROCESSES MANAGER evaluation as diet advanced. - Follow Up Care Primary Care Physician: Jan Almanza MD [Primary Care Provider] - Within 2 Weeks
[2017-07-20] MEDS: dilTIAZem CD 240 MG Capsule PO (09:08)
--- NOTE | 2017-07-20 09:08 | PCM.DC.SUM ---
Discharge Date and Diagnosis - Problem List Patient Problems: Active and Suspected Problems Atrial fibrillation with RVR (Acute) [place]'s syndrome (Acute) YENNI (acute kidney injury) (Acute) Date of Admission: 07/17/17 Date of Discharge: 07/20/17 - Primary Discharge Diagnosis Active and Suspected Problems Atrial fibrillation with RVR (Acute) Raudel's syndrome (Acute) YENNI (acute kidney injury) (Acute) - Secondary Discharge Diagnosis Chronic Problems Chronic atrial fibrillation (Chronic) Mental retardation (Chronic) Jaundice (Chronic) HTN (hypertension) (Chronic) Hx of tobacco use, presenting hazards to health (Chronic) Esophageal reflux (Chronic) 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 Electronically Signed: Tavon Flores MD at 4:53 EST , Service support , KUB X-Ray 07/17/17 11:00 IMPRESSION: Gaseous distention of the colon as well as fecal retention. Follow-up is recommended. Electronically Signed: Aaron Hernandez MD at 13:40 EST Tel [phone], Service support , Abdomen CT 07/17/17 23:50 IMPRESSION: 1. Significant air distention of sigmoid colon and rectum with distal sigmoid and rectal wall thickening. There is caliber change of the proximal sigmoid colon which may be due to the distortion of anatomy/fracture of the distended colon. There is no evidence of a volvulus. Obstruction at the proximal sigmoid colon level appears doubtful. This can be further assessed with Gastrografin enema. 2. Stable significant redundancy of the rectosigmoid colon. 3. Resolution of previous significant biliary ductal dilatation. 4. Increased of pericardial fluid. 5. Increased size of bilateral inguinal hernia containing noncompromised and nonobstructed small bowel. 6. Stable pancreas involution, coronary artery disease, arteriosclerosis, chronic interstitial lung disease and degenerative changes. Electronically Signed: Farheen Segura MD at 2:35 EST , Service support , ADDENDUM: 07/17/17 0252 IMPRESSION: 1. Significant air distention of sigmoid colon and rectum with distal sigmoid and rectal wall thickening. There is caliber change of the proximal sigmoid colon which may be due to the distortion of anatomy/PRESSURE of the distended colon. There is no evidence of a volvulus. Obstruction at the proximal sigmoid colon level appears doubtful. This can be further assessed with Gastrografin enema. 2. Stable significant redundancy of the rectosigmoid colon. 3. Resolution of previous significant biliary ductal dilatation. 4. Increased pericardial fluid. 5. Increased size of bilateral inguinal hernia containing noncompromised and nonobstructed small bowel. 6. Stable pancreas involution, coronary artery disease, arteriosclerosis, chronic interstitial lung disease and degenerative changes. Electronically Signed: Farheen Segura MD at 2:45 EST , Service support , Barium Enema 07/18/17 08:00 IMPRESSION: Focal polypoid lesion with narrowing at the rectosigmoid junction. Electronically Signed: Aaron Hernandez MD at 9:07 EST Tel [phone], Service support , KUB X-Ray 07/18/17 15:29 IMPRESSION: Continued gaseous distention/dilatation and elongation of the sigmoid loop only modestly improved from July 18, 2017. Apparently negative for volvulus on the earlier barium enema. Most of the introduce contrast material has been evacuated except a small amount lingering in the rectosigmoid region. Negative for free air. Electronically Signed: Lyubov Brooks MD at 16:41 EST , Service support , Operations: None Procedures: None Summary of Care Provided: The patient is a 81 year old M presents with abdominal pain. Patient underwent a CAT scan that showed significant air distention of the sigmoid colon and rectum with sigmoid rectal wall thickening. Not felt to be a volvulus but possible [place] syndrome. Patient underwent a Gastrografin enema that showed a colonic mass that was not causing complete obstruction. Patient did improve symptomatically during the course of hospitalization. Patient baseline is MRDD [place] Discussed with the patient's brother on several occasions in regards to aggressiveness of care. And given the patient's overall poor performance status, mental retardation the patient and his sister have decided on palliative treatment for the patient and no surgical intervention. The plan will be for the patient on mechanical soft with thin liquids. Patient [place] be [place] palliative care [place] and patient also have morphine in form of Roxanol and liquid Ativan as needed for symptom control. [] Discharge Diet: - - mechanical soft. thin liquids. Home Medications: Medications to take at Discharge Acetaminophen [Tylenol] 1,000 mg PO BID 07/16/17 Acetaminophen [Tylenol] 1,000 mg PO Q4H PRN PRN 07/16/17 Diltiazem HCl [Diltiazem ER] 240 mg PO DAILY 07/16/17 Escitalopram Oxalate [Lexapro] 20 mg PO DAILY 07/16/17 Finasteride [Proscar] 5 mg PO DAILY 07/16/17 Magnesium Hydroxide [Milk Of Magnesia] 30 ml PO DAILY PRN PRN 07/16/17 Meloxicam 15 mg PO DAILY 07/16/17 Omeprazole 20 mg PO DAILY 07/16/17 Polyethylene Glycol 3350 [Miralax] 17 gm PO QODAY 07/16/17 Tamsulosin HCl [Flomax] 0.4 mg PO DAILY 07/16/17 Ensure Clear 120 ml PO 4X/DAY liquid 07/20/17 Lorazepam Intensol [Ativan Intensol] 1 mg PO TID PRN #1 bottle 07/20/17 MorphINE Soln [Roxanol] 5 mg PO Q2H PRN PRN #30 po.syringe 07/20/17 Senna [Senokot] 2 tablet PO BID tablet 07/20/17 Following Prescrptions Were Given to Patient: MorphINE Soln [Roxanol] 5 mg PO Q2H PRN PRN #30 po.syringe PRN Reason: abdominal pain Lorazepam Intensol [Ativan Intensol] 1 mg PO TID PRN #1 bottle PRN Reason: Anxiety Primary Care Physician: Jan Almanza MD [Primary Care Provider] - Within 2 Weeks Disposition: Asstd Living/Non-Skill NH Minutes spent on discharge:: 40 Patient Condition:: Stable Meaningful Use Info Meaningful Use Diagnoses (Choose all that apply): None applicable Code Visit Inpatient E&M: 87143 Disch Hosp
--- NOTE | 2017-07-20 09:12 | DS.PCM_ITS ---
Discharge Date and Diagnosis - Problem List Patient Problems: Active and Suspected Problems Atrial fibrillation with RVR (Acute) [place]'s syndrome (Acute) YENNI (acute kidney injury) (Acute) Date of Admission: 07/17/17 Date of Discharge: 07/20/17 - Primary Discharge Diagnosis Active and Suspected Problems Atrial fibrillation with RVR (Acute) Raudel's syndrome (Acute) YENNI (acute kidney injury) (Acute) - Secondary Discharge Diagnosis Chronic Problems Chronic atrial fibrillation (Chronic) Mental retardation (Chronic) Jaundice (Chronic) HTN (hypertension) (Chronic) Hx of tobacco use, presenting hazards to health (Chronic) Esophageal reflux (Chronic) 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 Electronically Signed: Tavon Flores MD at 4:53 EST , Service support , KUB X-Ray 07/17/17 11:00 IMPRESSION: Gaseous distention of the colon as well as fecal retention. Follow-up is recommended. Electronically Signed: Aaron Hernandez MD at 13:40 EST Tel [phone], Service support , Abdomen CT 07/17/17 23:50 IMPRESSION: 1. Significant air distention of sigmoid colon and rectum with distal sigmoid and rectal wall thickening. There is caliber change of the proximal sigmoid colon which may be due to the distortion of anatomy/fracture of the distended colon. There is no evidence of a volvulus. Obstruction at the proximal sigmoid colon level appears doubtful. This can be further assessed with Gastrografin enema. 2. Stable significant redundancy of the rectosigmoid colon. 3. Resolution of previous significant biliary ductal dilatation. 4. Increased of pericardial fluid. 5. Increased size of bilateral inguinal hernia containing noncompromised and nonobstructed small bowel. 6. Stable pancreas involution, coronary artery disease, arteriosclerosis, chronic interstitial lung disease and degenerative changes. Electronically Signed: Farheen Segura MD at 2:35 EST , Service support , ADDENDUM: 07/17/17 0252 IMPRESSION: 1. Significant air distention of sigmoid colon and rectum with distal sigmoid and rectal wall thickening. There is caliber change of the proximal sigmoid colon which may be due to the distortion of anatomy/PRESSURE of the distended colon. There is no evidence of a volvulus. Obstruction at the proximal sigmoid colon level appears doubtful. This can be further assessed with Gastrografin enema. 2. Stable significant redundancy of the rectosigmoid colon. 3. Resolution of previous significant biliary ductal dilatation. 4. Increased pericardial fluid. 5. Increased size of bilateral inguinal hernia containing noncompromised and nonobstructed small bowel. 6. Stable pancreas involution, coronary artery disease, arteriosclerosis, chronic interstitial lung disease and degenerative changes. Electronically Signed: Farheen Segura MD at 2:45 EST , Service support , Barium Enema 07/18/17 08:00 IMPRESSION: Focal polypoid lesion with narrowing at the rectosigmoid junction. Electronically Signed: Aaron Hernandez MD at 9:07 EST Tel [phone], Service support , KUB X-Ray 07/18/17 15:29 IMPRESSION: Continued gaseous distention/dilatation and elongation of the sigmoid loop only modestly improved from July 18, 2017. Apparently negative for volvulus on the earlier barium enema. Most of the introduce contrast material has been evacuated except a small amount lingering in the rectosigmoid region. Negative for free air. Electronically Signed: Lyubov Brooks MD at 16:41 EST , Service support , Operations: None Procedures: None Summary of Care Provided: The patient is a 81 year old M presents with abdominal pain. Patient underwent a CAT scan that showed significant air distention of the sigmoid colon and rectum with sigmoid rectal wall thickening. Not felt to be a volvulus but possible [place] syndrome. Patient underwent a Gastrografin enema that showed a colonic mass that was not causing complete obstruction. Patient did improve symptomatically during the course of hospitalization. Patient baseline is MRDD [place] Discussed with the patient's brother on several occasions in regards to aggressiveness of care. And given the patient's overall poor performance status, mental retardation the patient and his sister have decided on palliative treatment for the patient and no surgical intervention. The plan will be for the patient on mechanical soft with thin liquids. Patient will be seen by palliative care [place] and patient also have morphine in form of Roxanol and liquid Ativan as needed for symptom control. [] Discharge Diet: - - mechanical soft. thin liquids. Home Medications: Medications to take at Discharge Acetaminophen [Tylenol] 1,000 mg PO BID 07/16/17 Acetaminophen [Tylenol] 1,000 mg PO Q4H PRN PRN 07/16/17 Diltiazem HCl [Diltiazem ER] 240 mg PO DAILY 07/16/17 Escitalopram Oxalate [Lexapro] 20 mg PO DAILY 07/16/17 Finasteride [Proscar] 5 mg PO DAILY 07/16/17 Magnesium Hydroxide [Milk Of Magnesia] 30 ml PO DAILY PRN PRN 07/16/17 Meloxicam 15 mg PO DAILY 07/16/17 Omeprazole 20 mg PO DAILY 07/16/17 Polyethylene Glycol 3350 [Miralax] 17 gm PO QODAY 07/16/17 Tamsulosin HCl [Flomax] 0.4 mg PO DAILY 07/16/17 Ensure Clear 120 ml PO 4X/DAY liquid 07/20/17 Lorazepam Intensol [Ativan Intensol] 1 mg PO TID PRN #1 bottle 07/20/17 MorphINE Soln [Roxanol] 5 mg PO Q2H PRN PRN #30 po.syringe 07/20/17 Senna [Senokot] 2 tablet PO BID tablet 07/20/17 Following Prescrptions Were Given to Patient: MorphINE Soln [Roxanol] 5 mg PO Q2H PRN PRN #30 po.syringe PRN Reason: abdominal pain Lorazepam Intensol [Ativan Intensol] 1 mg PO TID PRN #1 bottle PRN Reason: Anxiety Primary Care Physician: Jan Almanza MD [Primary Care Provider] - Within 2 Weeks Disposition: Asstd Living/Non-Skill NH Minutes spent on discharge:: 40 Patient Condition:: Stable Meaningful Use Info Meaningful Use Diagnoses (Choose all that apply): None applicable Code Visit Inpatient E&M: 14018 Disch Hosp
[2017-07-20 09:20] VITALS: BP 139/71; PULSE 113; RESP 16; TEMP 36.9; O2SAT 98
--- NOTE | 2017-07-20 09:35 | CASEMGMT ---
Social Work Note Updated by RN KITA aJson - that the pt's family would like a palliative care consult. Physician is discharging the pt this date. Inform that SW will fax referral to [facility] for palliative care consult and they can f/u with the pt's family on Saturday to setup a meeting time. Referral faxed to [facility] with note indicating f/u for palliative care consult at [facility]. Plan: [facility] Love Maria MSW, FLIGHT TEST MECHANIC
--- NOTE | 2017-07-20 11:04 | CASEMGMT ---
Social Work Note Dr. Lmyan states that the pt's brother is inquiring about a special bed and nursing states the brother is inquiring if the facility has been notified that the pt has ESBL. Placed call to facility and they confirm that they have rearranged rooms which is what the pt's brother is referring to in regards to special bed. Inform of ESBL and isolation and faxed clinicals as facility states they had not been notified of this. They can still accept and request that transport be setup in the afternoon any time after 1530. Updated floor junior legal secretary. Pt to discharge this date. Plan: [facility] Love Maria, VOCATIONAL GUIDANCE COUNSELOR, AND DRYING SUPERVISOR [employer]
[2017-07-20 15:18] VITALS: BP 104/68; PULSE 93; RESP 16; TEMP 36.9; O2SAT 96
== END 2017-07-20 16:07 | disposition intermediate care facility (04) | DRG 392 ==
LOC: ED 07-17 02:15 → PCU 07-17 04:18
PROVIDERS: Physician Assistant; Admitting Provider Hospitalist; Emergency Provider Emergency Medicine; Family Provider Family Medicine; PCP Family Medicine
DX: K59.8 Other specified functional intestinal disorders (principal); N17.9 Acute kidney failure, unspecified; I48.2 Chronic atrial fibrillation; R82.71 Bacteriuria; K63.89 Other specified diseases of intestine; F79 Unspecified intellectual disabilities; Z66 Do not resuscitate; I10 Essential (primary) hypertension; N40.1 Benign prostatic hyperplasia with lower urinary tract symptoms; R33.8 Other retention of urine; Z99.3 Dependence on wheelchair; K21.9 Gastro-esophageal reflux disease without esophagitis; Z87.891 Personal history of nicotine dependence
CPT/HCPCS: 36415; 51702; 71045; 74018; 74176; 74270; 80048; 80053; 80076; 81001; 82378; 83605; 83690; 84443; 84484; 85025; 87040; 87086; 87088; 87186; 93005; 97162; 97166; 97802; 99285; J7030; J7040; A4216; J2405

== ENCOUNTER → 2017-10-09 04:00 | Outpatient (REF) | payer MEDICARE, MEDICAID, SELFPAY ==
[2017-10-09 07:19] LABS: Hematocrit 34.1 % (40-54); Mean Corp Hgb Conc 32.3 g/gl (32-36); Mean Corpuscular Hgb 30.7 pg (27.0-32.0); Mean Corpuscular Volume 95.3 fL (80-94); Mean Platelet Vol. 9.5 fl (6.2-12.0); Platelet Count 152 K/mm3 (150-450); RBC Distribution Width SD 48.5 fl (35.1-43.9); Red Blood Count 3.58 M/mm3 (4.6-6.2); White Blood Count 3.7 K/mm3 (4.4-11.0)
[2017-10-09 07:24] LABS: Scan Indicated on CBC? Y/N NO
[2017-10-09 07:34] LABS: Anion Gap 7 (5-15); BUN 20 mg/dL (7-18); Calcium,Total 9.6 mg/dL (8.5-10.1); Chloride 113 mmol/L (98-107); Creatinine, Serum 0.77 mg/dL (0.70-1.30); EST Glomerular Filtration Rate 104 mL/min (>60); Est Glom Filt Rate - Afr Amer 125 mL/min (>60); Glucose 86 mg/dL (74-106); Potassium 4.2 mmol/L (3.5-5.1); Sodium Level 143 mmol/L (136-145)
== END ==
LOC: OLS.WCC 04:00
PROVIDERS: Visit Provider Family Medicine
DX: I10 Essential (primary) hypertension (principal); E78.5 Hyperlipidemia, unspecified
CPT/HCPCS: 36415; 80048; 85027

== ENCOUNTER → 2018-04-01 05:00 | Outpatient (REF) | payer MEDICARE, MEDICAID, SELFPAY ==
[2018-04-01 08:33] LABS: Hematocrit 37.7 % (40-54); Mean Corp Hgb Conc 31.8 g/gl (32-36); Mean Corpuscular Hgb 32.4 pg (27.0-32.0); Mean Corpuscular Volume 101.9 fL (80-94); Mean Platelet Vol. 10.1 fl (6.2-12.0); Platelet Count 170 K/mm3 (150-450); RBC Distribution Width CV 15.5 % (11.6-14.6); White Blood Count 4.2 K/mm3 (4.4-11.0)
[2018-04-01 08:37] LABS: Anion Gap 8 (5-15); BUN 25 mg/dL (7-18); Calcium,Total 9.4 mg/dL (8.5-10.1); Chloride 114 mmol/L (98-107); Creatinine, Serum 0.74 mg/dL (0.70-1.30); EST Glomerular Filtration Rate 109 mL/min (>60); Est Glom Filt Rate - Afr Amer 132 mL/min (>60); Glucose 79 mg/dL (74-106); Potassium 4.1 mmol/L (3.5-5.1); Sodium Level 145 mmol/L (136-145)
[2018-04-01 08:38] LABS: Scan Indicated on CBC? Y/N NO
== END ==
LOC: OLS.WCC 05:00
PROVIDERS: Visit Provider Family Medicine
DX: I10 Essential (primary) hypertension (principal); Z79.899 Other long term (current) drug therapy
CPT/HCPCS: 36415; 80048; 85027